=== PATIENT | male | born 1940 | race Caucasian/White ===

== ENCOUNTER 2017-04-23 14:15 | Outpatient (RCR) | payer SELFPAY | END 2017-04-23 23:59 | LOC: PR 14:15 | PROVIDERS: Family Provider Family Medicine; PCP Family Medicine; Visit Provider Internal Medicine Pulmonary Disease | DX: Z00.00 Encounter for general adult medical examination without abnormal findings (principal) ==

== ENCOUNTER 2017-05-23 14:15 | Outpatient (RCR) | payer SELFPAY | END 2017-05-24 23:59 | LOC: PR 14:15 | PROVIDERS: Family Provider Family Medicine; PCP Family Medicine; Visit Provider Internal Medicine Pulmonary Disease | DX: Z00.00 Encounter for general adult medical examination without abnormal findings (principal) ==

== ENCOUNTER 2017-06-23 14:15 | Outpatient (RCR) | payer SELFPAY | END 2017-06-23 23:59 | LOC: PR 14:15 | PROVIDERS: Family Provider Family Medicine; PCP Family Medicine; Visit Provider Internal Medicine Pulmonary Disease | DX: Z00.00 Encounter for general adult medical examination without abnormal findings (principal) ==

== ENCOUNTER 2017-07-24 06:00 | Outpatient (RCR) | payer SELFPAY | END 2017-07-24 23:59 | LOC: PR 06:00 | PROVIDERS: Family Provider Family Medicine; PCP Family Medicine; Visit Provider Internal Medicine Pulmonary Disease | DX: Z00.00 Encounter for general adult medical examination without abnormal findings (principal) ==

== ENCOUNTER 2017-07-25 08:49 | Outpatient (RCR) | payer SELFPAY | END 2017-08-23 23:59 | LOC: PR 08:49 | PROVIDERS: Family Provider Family Medicine; PCP Family Medicine; Visit Provider Internal Medicine Pulmonary Disease | DX: Z00.00 Encounter for general adult medical examination without abnormal findings (principal) ==

== ENCOUNTER 2017-09-23 06:00 | Outpatient (RCR) | payer SELFPAY | END 2017-09-23 23:59 | LOC: PR 06:00 | PROVIDERS: Family Provider Family Medicine; PCP Family Medicine; Visit Provider Internal Medicine Pulmonary Disease | DX: Z00.00 Encounter for general adult medical examination without abnormal findings (principal) ==

== ENCOUNTER → 2017-09-24 11:09 | Outpatient (CLI) | payer MEDICARE, SELFPAY ==
[2017-09-24 12:50] LABS: AST(SGOT) 26 U/L (15-37); Alanine Aminotransfer ALT/SGPT 35 U/L (16-61); Albumin, Serum 3.9 g/dL (3.2-5.0); Alkaline Phosphatase 158 U/L (45-117); Bilirubin, Direct 0.22 mg/dL (0.00-0.30); Cholesterol 139 mg/dL (200); Globulin 3.6 g/dL (2.2-4.2); High Density Lipoprotein 48 mg/dL; Protein, Total 7.5 g/dL (6.4-8.2); Triglycerides 85 mg/dL; Very Low Density Lipoprotein 17 mg/dL (5-40)
== END ==
PROVIDERS: Family Provider Family Medicine; PCP Family Medicine; Visit Provider Physician Assistant Medical
DX: E78.5 Hyperlipidemia, unspecified (principal)
CPT/HCPCS: 36415; 80061; 80076

== ENCOUNTER 2017-10-24 14:15 | Outpatient (RCR) | payer SELFPAY | END 2017-10-24 23:59 | LOC: PR 14:15 | PROVIDERS: Family Provider Family Medicine; PCP Family Medicine; Visit Provider Internal Medicine Pulmonary Disease | DX: Z00.00 Encounter for general adult medical examination without abnormal findings (principal) ==

== ENCOUNTER 2017-12-23 06:00 | Outpatient (RCR) | payer SELFPAY | END 2017-12-24 23:59 | LOC: PR 06:00 | PROVIDERS: Family Provider Family Medicine; PCP Family Medicine; Visit Provider Internal Medicine Pulmonary Disease | DX: Z00.00 Encounter for general adult medical examination without abnormal findings (principal) ==

== ENCOUNTER 2018-01-13 06:00 | Outpatient (RCR) | payer SELFPAY | END 2018-01-23 23:59 | LOC: PR 06:00 | PROVIDERS: Family Provider Family Medicine; PCP Family Medicine; Referring Provider Internal Medicine Pulmonary Disease; Visit Provider Internal Medicine Pulmonary Disease | DX: Z00.00 Encounter for general adult medical examination without abnormal findings (principal) ==

== ENCOUNTER 2018-02-19 06:00 | Outpatient (RCR) | payer SELFPAY ==
[2017-11-17 11:36] VITALS: BMI 27.7
== END 2018-02-23 23:59 ==
LOC: PR 06:00
PROVIDERS: Family Provider Family Medicine; PCP Family Medicine; Referring Provider Internal Medicine Pulmonary Disease; Visit Provider Internal Medicine Pulmonary Disease
DX: Z00.00 Encounter for general adult medical examination without abnormal findings (principal)

== ENCOUNTER → 2018-03-25 10:18 | Outpatient (CLI) | payer MEDICARE, SELFPAY ==
[2018-03-25 09:28] VITALS: BMI 27.7
[2018-03-25 10:56] LABS: Anion Gap 5 (5-15); BUN 11 mg/dL (7-18); BUN/Creat Ratio 12.9 RATIO (10-20); Chloride 108 mmol/L (98-107); Creatinine, Serum 0.85 mg/dL (0.70-1.30); EST Glomerular Filtration Rate 93 mL/min (>60); Est Glom Filt Rate - Afr Amer 113 mL/min (>60); Glucose 87 mg/dL (74-106); Potassium 4.2 mmol/L (3.5-5.1); Sodium Level 140 mmol/L (136-145)
[2018-03-25 11:17] LABS: AST(SGOT) 21 U/L (15-37); Alanine Aminotransfer ALT/SGPT 43 U/L (16-61); Albumin, Serum 3.9 g/dL (3.2-5.0); Alkaline Phosphatase 153 U/L (45-117); Bilirubin, Direct 0.23 mg/dL (0.00-0.30); Cholesterol 132 mg/dL (200); Globulin 3.5 g/dL (2.2-4.2); High Density Lipoprotein 48 mg/dL; Protein, Total 7.4 g/dL (6.4-8.2); Triglycerides 83 mg/dL; Very Low Density Lipoprotein 17 mg/dL (5-40)
== END ==
PROVIDERS: Physician Assistant Medical; Family Provider Family Medicine; PCP Family Medicine; Referring Provider Family Medicine; Visit Provider Family Medicine
DX: I10 Essential (primary) hypertension (principal); E78.5 Hyperlipidemia, unspecified; R35.0 Frequency of micturition; Z12.5 Encounter for screening for malignant neoplasm of prostate
CPT/HCPCS: 36415; 80048; 80061; 80076; 84153; G0103

== ENCOUNTER 2018-03-26 06:00 | Outpatient (RCR) | payer SELFPAY ==
[2017-11-17 11:36] VITALS: BMI 27.7
== END 2018-03-26 23:59 ==
LOC: PR 06:00
PROVIDERS: Family Provider Family Medicine; PCP Family Medicine; Referring Provider Internal Medicine Pulmonary Disease; Visit Provider Internal Medicine Pulmonary Disease
DX: Z00.00 Encounter for general adult medical examination without abnormal findings (principal)

== ENCOUNTER → 2018-03-26 11:14 | Outpatient (CLI) | payer MEDICARE, SELFPAY ==
[2018-03-25 09:28] VITALS: BMI 27.7
== END ==
PROVIDERS: Family Provider Family Medicine; PCP Family Medicine; Referring Provider Family Medicine; Visit Provider Family Medicine
DX: Z12.11 Encounter for screening for malignant neoplasm of colon (principal); Z79.01 Long term (current) use of anticoagulants
CPT/HCPCS: 82274

== ENCOUNTER → 2018-04-07 16:12 | Outpatient (CLI) | payer MEDICARE, SELFPAY ==
[2018-03-25 09:28] VITALS: BMI 27.7
[2018-04-07 12:07] VITALS: BMI 27.6
--- NOTE | 2018-04-07 12:42 | CT_ITS ---
STUDY: LOW DOSE CT LUNG CANCER SCREENING REASON FOR EXAM: Male, 77 years old. 40 year history of pipe smoking. RADIATION DOSAGE (If Supplied By Facility): CTDIvol = ( 2.55 ) mGy, DLP = ( 90.92 ) mGycm TECHNIQUE: No contrast was administered. Low dose technique was utilized (average mAS-38 and kVp 120). 1.25 mm axial source images with a slice interval of 1.25-mm were reconstructed in lung windows. 2.5 mm axial source images with a slice interval of 2.5-mm were reconstructed in lung windows. 5.0 mm axial source images with a slice interval of 5.0-mm were reconstructed in soft tissue windows. Nodule measured using lung windows on PACS and/or independent workstation with automated measurement of minimum and maximum diameter. Nodule measurement reported as average diameter rounded to the nearest whole number. Growth is defined as an increase ins size of greater than 1.5 mm. COMPARISON: None. NODULES: There is a 6.8 mm calcified granuloma in the superior lateral aspect of the left lower lobe as seen on axial image #89. Total lung nodules (excluding granulomas): Emphysema: Hyperinflation. Mild degree of emphysematous changes. Findings suggest a mild degree of right apical scarring. Increased linear density with areas of confluence in the posterior aspect of the lingular segment of the left upper lobe. This abuts the left major fissure and most likely represents scarring. Aorta: Atherosclerotic calcification of the aortic arch and descending thoracic aorta. Coronary arteries: Coronary artery calcification. Mediastinal nodes: Small benign-appearing mediastinal lymph nodes. Other chest and abdominal findings: CT/Low Dose CT Lung Screening IMPRESSION: Lung-RADS category 2 - Continue annual screening with LDCT in 12 months. IMPORTANT NOTES FOR USE: ACR Lung-RADS Version 1.0 Assessment Categories Release Date: June 21, 2013 Category: Coded 0-4 bases on nodule(s) with highest degree of suspicion. Negative screen is defined as categories 1 and 2; a positive screen is defined as categories 3 and 4. Category 3 and 4A nodules that are unchanged on interval CT should be coded as category 2, and individuals returned to screening in 12 months. Category 4X: Category 3 or 4 nodules with additional imaging findings that increase the suspicion of lung cancer, such as spiculation, GGN that doubles in size in 1 year, enlarged lymph notes, etc. Category Modifiers: S (significant finding unrelated to lung cancer) and C (prior history of treated lung cancer) may be added to the 0-4 Lung-RADS Electronically Signed: Milo Valero MD at 13:17 EST , Service support ,
== END ==
PROVIDERS: Family Provider Family Medicine; PCP Family Medicine; Referring Provider Nurse Practitioner Family; Visit Provider Nurse Practitioner Family
DX: Z87.891 Personal history of nicotine dependence (principal); Z12.2 Encounter for screening for malignant neoplasm of respiratory organs
CPT/HCPCS: G0297

== ENCOUNTER 2018-04-23 06:00 | Outpatient (RCR) | payer SELFPAY ==
[2018-03-25 09:28] VITALS: BMI 27.7
== END 2018-04-23 23:59 ==
LOC: PR 06:00
PROVIDERS: Family Provider Family Medicine; PCP Family Medicine; Referring Provider Internal Medicine Pulmonary Disease; Visit Provider Internal Medicine Pulmonary Disease
DX: Z00.00 Encounter for general adult medical examination without abnormal findings (principal)

== ENCOUNTER 2018-05-22 14:15 | Outpatient (RCR) | payer SELFPAY ==
[2018-04-24 00:26] VITALS: BMI 27.7
== END 2018-05-24 23:59 ==
LOC: PR 14:15
PROVIDERS: Family Provider Family Medicine; PCP Family Medicine; Referring Provider Internal Medicine Pulmonary Disease; Visit Provider Internal Medicine Pulmonary Disease
DX: Z00.00 Encounter for general adult medical examination without abnormal findings (principal)

== ENCOUNTER 2018-06-23 06:00 | Outpatient (RCR) | payer SELFPAY ==
[2018-04-24 00:26] VITALS: BMI 27.7
== END 2018-06-23 23:59 ==
LOC: PR 06:00
PROVIDERS: Family Provider Family Medicine; PCP Family Medicine; Referring Provider Internal Medicine Pulmonary Disease; Visit Provider Internal Medicine Pulmonary Disease
DX: Z00.00 Encounter for general adult medical examination without abnormal findings (principal)

== ENCOUNTER 2018-07-23 06:00 | Outpatient (RCR) | payer SELFPAY ==
[2018-04-24 00:26] VITALS: BMI 27.7
== END 2018-07-24 23:59 ==
LOC: PR 06:00
PROVIDERS: Family Provider Family Medicine; PCP Family Medicine; Referring Provider Internal Medicine Pulmonary Disease; Visit Provider Internal Medicine Pulmonary Disease
DX: Z00.00 Encounter for general adult medical examination without abnormal findings (principal)

== ENCOUNTER 2018-09-22 06:00 | Outpatient (RCR) | payer SELFPAY ==
[2018-04-24 00:26] VITALS: BMI 27.7
== END 2018-09-23 23:59 ==
LOC: PR 06:00
PROVIDERS: Family Provider Family Medicine; PCP Family Medicine; Referring Provider Internal Medicine Pulmonary Disease; Visit Provider Internal Medicine Pulmonary Disease
DX: Z00.00 Encounter for general adult medical examination without abnormal findings (principal)

== ENCOUNTER 2018-10-16 14:15 | Outpatient (RCR) | payer SELFPAY ==
[2018-04-24 00:26] VITALS: BMI 27.7
== END 2018-10-24 23:59 ==
LOC: PR 14:15
PROVIDERS: Family Provider Family Medicine; PCP Family Medicine; Referring Provider Internal Medicine Pulmonary Disease; Visit Provider Internal Medicine Pulmonary Disease
DX: Z00.00 Encounter for general adult medical examination without abnormal findings (principal)

== ENCOUNTER 2018-11-23 14:15 | Outpatient (RCR) | payer SELFPAY ==
[2018-04-24 00:26] VITALS: BMI 27.7
== END 2018-11-23 23:59 ==
LOC: PR 14:15
PROVIDERS: Family Provider Family Medicine; PCP Family Medicine; Referring Provider Internal Medicine Pulmonary Disease; Visit Provider Internal Medicine Pulmonary Disease
DX: Z00.00 Encounter for general adult medical examination without abnormal findings (principal)

== ENCOUNTER → 2018-11-27 | Outpatient (CLI) | payer MEDICARE, SELFPAY ==
[2018-11-24 15:36] VITALS: BMI 27.4
[2018-11-27 12:15] LABS: AST(SGOT) 26 U/L (15-37); Alanine Aminotransfer ALT/SGPT 35 U/L (16-61); Albumin, Serum 3.6 g/dL (3.2-5.0); Alkaline Phosphatase 160 U/L (45-117); Bilirubin, Direct 0.22 mg/dL (0.00-0.30); Cholesterol 150 mg/dL (200); Globulin 3.4 g/dL (2.2-4.2); High Density Lipoprotein 48 mg/dL; Triglycerides 102 mg/dL; Very Low Density Lipoprotein 20 mg/dL (5-40)
== END | disposition home or self-care (01) ==
PROVIDERS: Internal Medicine Cardiovascular Disease; Family Provider Family Medicine; PCP Family Medicine; Referring Provider Internal Medicine Cardiovascular Disease; Visit Provider Internal Medicine Cardiovascular Disease
DX: E78.00 Pure hypercholesterolemia, unspecified (principal)
CPT/HCPCS: 36415; 80061; 80076

== ENCOUNTER 2018-12-24 06:00 | Outpatient (RCR) | payer SELFPAY ==
[2018-04-24 00:26] VITALS: BMI 27.7
== END 2018-12-24 23:59 ==
LOC: PR 06:00
PROVIDERS: Family Provider Family Medicine; PCP Family Medicine; Referring Provider Internal Medicine Pulmonary Disease; Visit Provider Internal Medicine Pulmonary Disease
DX: Z00.00 Encounter for general adult medical examination without abnormal findings (principal)

== ENCOUNTER 2019-01-19 06:00 | Outpatient (RCR) | payer SELFPAY ==
[2018-12-10 14:09] VITALS: BMI 27.7
== END 2019-01-23 23:59 ==
LOC: PR 06:00
PROVIDERS: Family Provider Family Medicine; PCP Family Medicine; Referring Provider Internal Medicine Pulmonary Disease; Visit Provider Internal Medicine Pulmonary Disease
DX: Z00.00 Encounter for general adult medical examination without abnormal findings (principal)

== ENCOUNTER 2019-02-23 06:00 | Outpatient (RCR) | payer SELFPAY ==
[2018-12-10 14:09] VITALS: BMI 27.7
== END 2019-02-23 23:59 ==
LOC: PR 06:00
PROVIDERS: Family Provider Family Medicine; PCP Family Medicine; Referring Provider Internal Medicine Pulmonary Disease; Visit Provider Internal Medicine Pulmonary Disease
DX: Z00.00 Encounter for general adult medical examination without abnormal findings (principal)

== ENCOUNTER → 2019-03-04 10:32 | Outpatient (CLI) | payer MEDICARE, SELFPAY ==
[2019-02-25 10:33] VITALS: BMI 27.9
--- NOTE | 2019-03-04 10:35 | RAD_ITS ---
STUDY: X-RAY CHEST REASON FOR EXAM: Male, 78 years old. COUGH, COPD TECHNIQUE: Frontal and lateral views of the chest. COMPARISON: 12/29/2012. FINDINGS: There is hyperinflation of the lungs consistent with chronic obstructive lung disease (COPD). No infiltrates. Small calcified granuloma of the mid right lung, stable. No effusions. There is no demonstrated pleural abnormality. Normal size heart. Normal mediastinum and sarah beth. Normal visualized pulmonary arteries. Normal visualized aortic arch and descending thoracic aorta. There are diffuse degenerative changes of the visualized thoracic spine. Normal visualized ribs, clavicles, and shoulders. There is no demonstrated abnormality of the visualized soft tissue structures of the upper abdomen. RAD/Chest PA and Lateral IMPRESSION: There are findings consistent with COPD. There is no evidence of acute chest disease. Electronically Signed: Carlos Riggs MD at 18:07 EST , Service support ,
== END ==
PROVIDERS: Family Provider Family Medicine; PCP Family Medicine; Referring Provider Nurse Practitioner Family; Visit Provider Nurse Practitioner Family
DX: R05 Cough (principal)
CPT/HCPCS: 71046

== ENCOUNTER 2019-03-26 14:15 | Outpatient (RCR) | payer SELFPAY ==
[2018-12-10 14:09] VITALS: BMI 27.7
== END 2019-03-26 23:59 ==
LOC: PR 14:15
PROVIDERS: Family Provider Family Medicine; PCP Family Medicine; Referring Provider Internal Medicine Pulmonary Disease; Visit Provider Internal Medicine Pulmonary Disease
DX: Z00.00 Encounter for general adult medical examination without abnormal findings (principal)

== ENCOUNTER 2019-04-23 14:15 | Outpatient (RCR) | payer SELFPAY ==
[2019-02-25 10:33] VITALS: BMI 27.9
== END 2019-04-24 23:59 ==
LOC: PR 14:15
PROVIDERS: Family Provider Family Medicine; PCP Family Medicine; Referring Provider Internal Medicine Pulmonary Disease; Visit Provider Internal Medicine Pulmonary Disease
DX: Z00.00 Encounter for general adult medical examination without abnormal findings (principal)

== ENCOUNTER → 2019-05-04 13:58 | Outpatient (CLI) | payer MEDICARE, SELFPAY ==
[2019-02-25 10:33] VITALS: BMI 27.9
[2019-05-04 13:32] VITALS: BMI 29.2
--- NOTE | 2019-05-04 14:00 | CT_ITS ---
STUDY: LOW DOSE CT LUNG CANCER SCREENING REASON FOR EXAM: Male, 78 years old. LUNG SCREEN, 45 PACK YEAR HISTORY, YEARLY FOLLOW UP RADIATION DOSAGE (If Supplied By Facility): CTDIvol = ( 2.55 ) mGy, DLP = ( 82.64 ) mGycm TECHNIQUE: No contrast was administered. Low dose technique was utilized (average mAS-38 and kVp 120). 1.25 mm axial source images with a slice interval of 1.25-mm were reconstructed in lung windows. 2.5 mm axial source images with a slice interval of 2.5-mm were reconstructed in lung windows. 5.0 mm axial source images with a slice interval of 5.0-mm were reconstructed in soft tissue windows. Nodule measured using lung windows on PACS and/or independent workstation with automated measurement of minimum and maximum diameter. Nodule measurement reported as average diameter rounded to the nearest whole number. Growth is defined as an increase ins size of greater than 1.5 mm. COMPARISON: Comparison is made with prior examination January 05, 2019. NODULES: Stable 6.8 mm calcified granuloma in the superior lateral aspect of the left lower lobe. Emphysema: There is evidence of emphysematous changes more prominent in the upper lobes. Calcified left hilar lymph nodes. Thickening of the left major fissure. Aorta: Calcific plaques. Coronary arteries: Coronary artery calcifications. Mediastinal nodes: Small benign-appearing mediastinal lymph nodes. Other chest and abdominal findings: Degenerative changes of the thoracic spine. CT/Low Dose CT Lung Screening IMPRESSION: Lung-RADS category 2 - Continue annual screening with LDCT in 12 months. IMPORTANT NOTES FOR USE: ACR Lung-RADS Version 1.0 Assessment Categories Release Date: June 21, 2013 Category: Coded 0-4 bases on nodule(s) with highest degree of suspicion. Negative screen is defined as categories 1 and 2; a positive screen is defined as categories 3 and 4. Category 3 and 4A nodules that are unchanged on interval CT should be coded as category 2, and individuals returned to screening in 12 months. Category 4X: Category 3 or 4 nodules with additional imaging findings that increase the suspicion of lung cancer, such as spiculation, GGN that doubles in size in 1 year, enlarged lymph notes, etc. Category Modifiers: S (significant finding unrelated to lung cancer) and C (prior history of treated lung cancer) may be added to the 0-4 Lung-RADS Electronically Signed: Milo Valero, at 15:25 EDT , Service support ,
== END ==
PROVIDERS: PCP Family Medicine; Referring Provider Nurse Practitioner Family; Visit Provider Nurse Practitioner Family
DX: Z12.2 Encounter for screening for malignant neoplasm of respiratory organs (principal); Z87.891 Personal history of nicotine dependence
CPT/HCPCS: G0297

== ENCOUNTER 2019-05-07 14:15 | Outpatient (RCR) | payer SELFPAY ==
[2019-02-25 10:33] VITALS: BMI 27.9
== END 2019-05-25 23:59 ==
LOC: PR 14:15
PROVIDERS: Family Provider Family Medicine; PCP Family Medicine; Referring Provider Internal Medicine Pulmonary Disease; Visit Provider Internal Medicine Pulmonary Disease
DX: Z00.00 Encounter for general adult medical examination without abnormal findings (principal)

== ENCOUNTER 2019-06-28 13:38 | Outpatient (RCR) | payer MEDICARE, SELFPAY ==
[2019-05-04 13:32] VITALS: BMI 29.2
== END 2019-07-25 23:59 ==
LOC: PR 13:38
PROVIDERS: Family Provider Family Medicine; PCP Family Medicine; Referring Provider Internal Medicine Pulmonary Disease; Visit Provider Internal Medicine Pulmonary Disease
DX: Z00.00 Encounter for general adult medical examination without abnormal findings (principal)

== ENCOUNTER → 2019-12-02 11:05 | Outpatient (CLI) | payer MEDICARE, SELFPAY ==
[2019-11-29 11:04] VITALS: BMI 28.7
[2019-12-02 12:31] LABS: AST(SGOT) 25 U/L (15-37); Alanine Aminotransfer ALT/SGPT 40 U/L (16-61); Albumin, Serum 3.8 g/dL (3.2-5.0); Alkaline Phosphatase 149 U/L (45-117); Bilirubin, Direct 0.28 mg/dL (0.00-0.30); Cholesterol 137 mg/dL (200); Globulin 3.5 g/dL (2.2-4.2); High Density Lipoprotein 52 mg/dL; Protein, Total 7.3 g/dL (6.4-8.2); Triglycerides 77 mg/dL; Very Low Density Lipoprotein 15 mg/dL (5-40)
== END ==
PROVIDERS: PCP Family Medicine; Referring Provider Internal Medicine Cardiovascular Disease; Visit Provider Internal Medicine Cardiovascular Disease
DX: E78.00 Pure hypercholesterolemia, unspecified (principal)
CPT/HCPCS: 36415; 80061; 80076

== ENCOUNTER → 2020-07-26 14:22 | Outpatient (CLI) | payer MEDICARE, SELFPAY ==
[2019-11-29 11:04] VITALS: BMI 28.7
--- NOTE | 2020-07-26 14:35 | RAD_ITS ---
STUDY: X-RAY CHEST REASON FOR EXAM: Male, 80 years old. COPD TECHNIQUE: PA and lateral views of the chest. COMPARISON: 03/04/2019 FINDINGS: There is hyperinflation of the lungs consistent with chronic obstructive lung disease (COPD). There is no demonstrated pleural abnormality. Normal size heart. Normal mediastinum and sarah beth. Normal visualized pulmonary arteries. Normal visualized aortic arch and descending thoracic aorta. Normal visualized thoracic spine. Normal visualized ribs, clavicles, and shoulders. There is no demonstrated abnormality of the visualized soft tissue structures of the upper abdomen. RAD/Chest PA and Lateral IMPRESSION: Emphysema without pneumonia or atelectasis. Electronically Signed: Eduardo Patterson MD at 14:48 EDT Tel , Service support ,
== END ==
PROVIDERS: PCP Family Medicine; Referring Provider Internal Medicine Pulmonary Disease; Visit Provider Internal Medicine Pulmonary Disease
DX: J44.9 Chronic obstructive pulmonary disease, unspecified (principal)
CPT/HCPCS: 71046

== ENCOUNTER 2020-08-22 08:00 | Outpatient (RCR) | payer SELFPAY ==
[2019-11-29 11:04] VITALS: BMI 28.7
== END 2020-08-23 23:59 ==
LOC: PR 08:00
PROVIDERS: PCP Family Medicine; Referring Provider Internal Medicine Pulmonary Disease; Visit Provider Internal Medicine Pulmonary Disease
DX: Z00.00 Encounter for general adult medical examination without abnormal findings (principal)

== ENCOUNTER 2020-09-21 08:00 | Outpatient (RCR) | payer SELFPAY ==
[2019-11-29 11:04] VITALS: BMI 28.7
== END 2020-09-23 23:59 ==
LOC: PR 08:00
PROVIDERS: PCP Family Medicine; Referring Provider Internal Medicine Pulmonary Disease; Visit Provider Internal Medicine Pulmonary Disease
DX: Z00.00 Encounter for general adult medical examination without abnormal findings (principal)

== ENCOUNTER 2020-10-24 08:00 | Outpatient (RCR) | payer SELFPAY ==
[2019-11-29 11:04] VITALS: BMI 28.7
== END 2020-10-24 23:59 ==
LOC: PR 08:00
PROVIDERS: PCP Family Medicine; Referring Provider Internal Medicine Pulmonary Disease; Visit Provider Internal Medicine Pulmonary Disease
DX: Z00.00 Encounter for general adult medical examination without abnormal findings (principal)

== ENCOUNTER 2020-11-23 08:00 | Outpatient (RCR) | payer SELFPAY ==
[2020-10-25 00:35] VITALS: BMI 28.7
== END 2020-11-23 23:59 ==
LOC: PR 08:00
PROVIDERS: PCP Family Medicine; Referring Provider Internal Medicine Pulmonary Disease; Visit Provider Internal Medicine Pulmonary Disease
DX: Z00.00 Encounter for general adult medical examination without abnormal findings (principal)

== ENCOUNTER → 2020-12-21 09:54 | Outpatient (CLI) | payer MEDICARE, SELFPAY ==
[2020-12-21 11:11] LABS: AST(SGOT) 23 U/L (15-37); Alanine Aminotransfer ALT/SGPT 40 U/L (16-61); Albumin, Serum 3.6 g/dL (3.2-5.0); Alkaline Phosphatase 131 U/L (45-117); Bilirubin, Direct 0.26 mg/dL (0.00-0.30); Cholesterol 128 mg/dL (200); Globulin 3.7 g/dL (2.2-4.2); High Density Lipoprotein 48 mg/dL; Protein, Total 7.3 g/dL (6.4-8.2); Triglycerides 99 mg/dL; Very Low Density Lipoprotein 20 mg/dL (5-40)
== END ==
PROVIDERS: PCP Family Medicine; Referring Provider Internal Medicine Cardiovascular Disease; Visit Provider Internal Medicine Cardiovascular Disease
DX: E78.00 Pure hypercholesterolemia, unspecified (principal)
CPT/HCPCS: 36415; 80061; 80076

== ENCOUNTER 2021-01-23 08:00 | Outpatient (RCR) | payer SELFPAY ==
[2020-11-24 00:27] VITALS: BMI 28.7
== END 2021-01-23 23:59 ==
LOC: PR 08:00
PROVIDERS: PCP Family Medicine; Referring Provider Internal Medicine Pulmonary Disease; Visit Provider Internal Medicine Pulmonary Disease
DX: Z00.00 Encounter for general adult medical examination without abnormal findings (principal)

== ENCOUNTER 2021-02-13 08:00 | Outpatient (RCR) | payer SELFPAY ==
[2021-01-24 00:08] VITALS: BMI 28.7
== END 2021-02-23 23:59 ==
LOC: PR 08:00
PROVIDERS: PCP Family Medicine; Referring Provider Internal Medicine Pulmonary Disease; Visit Provider Internal Medicine Pulmonary Disease
DX: Z00.00 Encounter for general adult medical examination without abnormal findings (principal)

== ENCOUNTER 2021-02-27 06:36 | Outpatient (RCR) | payer SELFPAY | END 2021-03-26 23:59 | LOC: PR 06:36 | PROVIDERS: PCP Family Medicine; Referring Provider Internal Medicine Pulmonary Disease; Visit Provider Internal Medicine Pulmonary Disease | DX: Z00.00 Encounter for general adult medical examination without abnormal findings (principal) ==

== ENCOUNTER → 2021-06-15 | Outpatient (CLI) | payer MEDICARE, SELFPAY ==
[2021-06-15 11:31] LABS: AST(SGOT) 34 U/L (15-37); Alanine Aminotransfer ALT/SGPT 54 U/L (16-61); Albumin, Serum 3.8 g/dL (3.2-5.0); Alkaline Phosphatase 145 U/L (45-117); Bilirubin, Direct 0.21 mg/dL (0.00-0.30); Cholesterol 120 mg/dL (200); Globulin 3.6 g/dL (2.2-4.2); High Density Lipoprotein 44 mg/dL; Protein, Total 7.4 g/dL (6.4-8.2); Triglycerides 76 mg/dL; Very Low Density Lipoprotein 15 mg/dL (5-40)
== END | disposition home or self-care (01) ==
PROVIDERS: PCP Family Medicine; Referring Provider Internal Medicine Cardiovascular Disease; Visit Provider Internal Medicine Cardiovascular Disease
DX: E78.00 Pure hypercholesterolemia, unspecified (principal)
CPT/HCPCS: 36415; 80061; 80076

== ENCOUNTER 2021-07-26 06:25 | Outpatient (RCR) | payer SELFPAY | END 2021-08-23 23:59 | LOC: PR 06:25 | PROVIDERS: PCP Family Medicine; Referring Provider Internal Medicine Pulmonary Disease; Visit Provider Internal Medicine Pulmonary Disease | DX: Z00.00 Encounter for general adult medical examination without abnormal findings (principal) ==

== ENCOUNTER → 2022-02-28 | Outpatient (CLI) | payer MEDICARE, SELFPAY ==
--- NOTE | 2022-02-28 06:41 | ECHOD_ITS ---
Reason For Study: CAD/ASHD Procedure This was a 2D Doppler, Color Flow transthoracic echocardiogram. The exam was of adequate technical quality. Exam performed in department. Left Ventricle Normal LV size. Apical false tendon noted. Left ventricular systolic function is normal. The estimated ejection fraction is 55 %. Diastolic function is indeterminate. No regional wall motion abnormalities noted. Right Ventricle Normal RV size. Normal systolic function. Atria Normal left atrium. Normal right atrium. No doppler evidence for ASD. Mitral Valve There is no mitral annular calcification. Normal mitral valve. The mitral papillary muscle appears thickened and/or calcified. Mild (1+) mitral valve insufficiency. Tricuspid Valve Normal tricuspid valve. Mild tricuspid valve insufficiency. Unable to estimate RV systolic pressure due to insufficient tricuspid regurgitant envelope. Aortic Valve Trisinus/trileaflet aortic valve. Mild focal aortic valve calcification. Pulmonic Valve The pulmonic valve is not well visualized. Mild (1+) pulmonic valve insufficiency. Great Vessels Normal sized aortic root. Pericardium/Pleural No pericardial effusion. MMode/2D Measurements & Calculations LVIDd: 5.3 cm IVSd: 1.0 cm Ao root diam: 3.4 cm LVIDs: 3.3 cm LVPWd: 1.0 cm RVDd: 3.2 cm FS: 36.7 % LAV(MOD-bp): 57.0 ml LVAd ap4: 27.5 cm2 LVAd ap2: 29.4 cm2 LAV(MOD-bp) Indexed: 29.6 ml/m2 LVLd ap4: 7.4 cm LVLd ap2: 8.3 cm LAV(MOD-sp2): 53.2 ml EDV(MOD-sp4): 84.9 ml EDV(MOD-sp2): 88.4 ml LAV(MOD-sp4): 53.1 ml EDV(sp4-el): 87.3 ml EDV(sp2-el): 88.2 ml LVAs ap4: 17.2 cm2 LVAs ap2: 17.0 cm2 LVLs ap4: 6.5 cm LVLs ap2: 6.3 cm ESV(MOD-sp4): 40.1 ml ESV(MOD-sp2): 38.9 ml ESV(sp4-el): 38.6 ml ESV(sp2-el): 39.1 ml EF(MOD-sp4): 52.8 % EF(MOD-sp2): 56.0 % EF(sp4-el): 55.7 % SV(MOD-sp4): 44.8 ml SV(MOD-sp2): 49.5 ml SV(sp4-el): 48.7 ml LA dimension(2D): 3.9 cm LA A4 area: 17.4 cm2 RA A4 area: 18.4 cm2 Time Measurements MV dec time: 0.23 sec Doppler Measurements & Calculations MV E max sergio: 58.6 cm/sec Lat Peak E' Sergio: 9.4 cm/sec Med Peak E' Sergio: 7.0 cm/sec MV A max sergio: 91.9 cm/sec E/E' lat: 6.2 E/E' med: 8.4 MV E/A: 0.64 MV dec slope: 255.7 cm/sec2 Ao V2 max: 101.3 cm/sec LV V1 max: 78.9 cm/sec Ao max P.1 mmHg LV V1 max P.5 mmHg Ao V2 mean: 72.6 cm/sec LV V1 mean P.3 mmHg Ao mean P.4 mmHg LV V1 mean: 52.7 cm/sec Ao V2 VTI: 22.4 cm LV V1 VTI: 17.1 cm AV (velocity ratio): 0.76 PA V2 max: 83.0 cm/sec PI end-d sergio: 127.7 cm/sec ECHO/Echo Complete Interpretation Summary Left ventricular systolic function is normal. The estimated ejection fraction is 55 %. Apical false tendon noted. The mitral papillary muscle appears thickened and/or calcified. Mild (1+) mitral valve insufficiency. Mild tricuspid valve insufficiency. Mild focal aortic valve calcification. Mild (1+) pulmonic valve insufficiency. Unable to estimate RV systolic pressure due to insufficient tricuspid regurgita nt envelope. Diastolic function is indeterminate. Ordering Physician: Dedrick Ureña Referring Physician: Freddy Carson Performed By: Day Lara, SHERINE, RVT
--- NOTE | 2022-02-28 12:55 | STRESSREP ---
Stress Test Report Date: 02-28-2022 Procedure: Pharmacologic stress nuclear imaging study Indications: Shortness of breath/dyspnea on exertion; CAD; PCI Consent: Per the patient Procedure: The patient underwent pharmacologic (Regadenoson 0.4mg ) evaluation with a peak heart rate of 97 beats per minute (68%predicted maximal heart rate) and a resting blood pressure of 142/64 mmHg and a peak blood pressure of 142/64 mmHg. The baseline ECG demonstrated sinus rhythm. The peak pharmacologic ECG demonstrated no obvious ECG changes. There were rare PACs/PVCs pretest and during recovery. There was no complaint of chest discomfort during pharmacologic infusion or recovery. The examination was discontinued secondary to completion of protocol. Impression: 1. Pharmacologic (Regadenoson) evaluation 2. Peak pharmacologic ECG with no obvious ECG changes. 3. There were rare PACs/PVCs pretest and during recovery. 4. Nuclear images pending Myocardial perfusion imaging study: Technique: The patient was injected with 11.7 millicuries of technetium 99m Cardiolite and subsequently rest SPECT Cardiolite nuclear imaging was obtained in the horizontal long, vertical long, and short axis views. The patient underwent pharmacologic (Regadenoson) evaluation with a peak heart rate of 97 beats per minute (68% percent predicted maximal heart rate) and a resting blood pressure of 142/64 mmHg and a peak blood pressure of 142/64 mmHg. The patient was injected with 34.3 millicuries of technetium 99m Cardiolite and subsequently stress SPECT Cardiolite nuclear imaging was obtained in the horizontal long, vertical long, and short axis views. A gated Cardiolite study at peak stress was obtained. Interpretation: Rest and stress SPECT Cardiolite nuclear imaging status post realignment, normalization, and attenuation correction demonstrate an element of body motion during image acquisition and otherwise relative uniform tracer uptake/myocardial perfusion appearing within normal limits. There is end systolic thickening and brightening. The gated Cardiolite study demonstrates myocardial thickening and inward wall motion. The reported LVEF is 57%. Impression: 1. Rest and stress SPECT Cardiolite nuclear imaging demonstrate relative uniform tracer uptake and myocardial perfusion appearing within normal limits. 2. The gated Cardiolite study reports an LVEF of 57%. This note was generated with [employer] software. It may contain incorrect words, spelling, and punctuation that were not noted in checking the note before signing.
== END | disposition home or self-care (01) ==
LOC: CVS 06:40
PROVIDERS: PCP Family Medicine; Visit Provider Internal Medicine Cardiovascular Disease
DX: I25.10 Atherosclerotic heart disease of native coronary artery without angina pectoris (principal); R06.09 Other forms of dyspnea; I10 Essential (primary) hypertension; E78.00 Pure hypercholesterolemia, unspecified; Z95.5 Presence of coronary angioplasty implant and graft
CPT/HCPCS: 78452; 93017; 93306; A9500; A4216; J2785

== ENCOUNTER → 2022-07-18 | Outpatient (CLI) | payer MEDICARE, SELFPAY ==
[2022-07-18 15:53] LABS: ALB/GLOB Ratio 1.2 RATIO (0.9-2.4); AST(SGOT) 25 U/L (15-37); Alanine Aminotransfer ALT/SGPT 35 U/L (16-61); Albumin, Serum 3.9 g/dL (3.2-5.0); Alkaline Phosphatase 152 U/L (45-117); Anion Gap 8 (5-15); BUN 13 mg/dL (7-18); BUN/Creat Ratio 17.5 RATIO (10-20); Calcium,Total 9.2 mg/dL (8.5-10.1); Chloride 106 mmol/L (98-107); Cholesterol 134 mg/dL (200); Creatinine, Serum 0.74 mg/dL (0.70-1.30); EST Glomerular Filtration Rate 108 mL/min (>60); Est Glom Filt Rate - Afr Amer 130 mL/min (>60); Globulin 3.3 g/dL (2.2-4.2); Glucose 78 mg/dL (74-106); High Density Lipoprotein 49 mg/dL; Potassium 4.3 mmol/L (3.5-5.1); Protein, Total 7.2 g/dL (6.4-8.2); Sodium Level 141 mmol/L (136-145); Triglycerides 91 mg/dL; Very Low Density Lipoprotein 18 mg/dL (5-40)
== END | disposition home or self-care (01) ==
LOC: BIMLAB 12:09
PROVIDERS: PCP Family Medicine; Referring Provider Family Medicine; Visit Provider Family Medicine
DX: E78.00 Pure hypercholesterolemia, unspecified (principal); R35.0 Frequency of micturition
CPT/HCPCS: 36415; 80053; 80061; 84153

== ENCOUNTER 2022-10-01 09:51 | Outpatient (RCR) | payer MEDICARE, SELFPAY | END 2022-10-21 08:11 | disposition home or self-care (01) | LOC: WC 09:51 | PROVIDERS: PCP Family Medicine; Referring Provider Physician Assistant Surgical; Visit Provider Surgery | DX: Z00.00 Encounter for general adult medical examination without abnormal findings (principal) ==

== ENCOUNTER → 2023-03-24 | Outpatient (CLI) | payer MEDICARE, SELFPAY ==
--- NOTE | 2023-03-24 14:22 | RAD_ITS ---
STUDY: X-RAY CHEST REASON FOR EXAM: Male, 82 years old. Chest congestion w/ sob TECHNIQUE: PA and lateral views of the chest. COMPARISON: Comparison is made with prior study dated January 24, 2022. FINDINGS: There is hyperinflation of the lungs consistent with chronic obstructive lung disease (COPD). Calcified granuloma in the left upper lobe. There is no demonstrated pleural abnormality. Normal size heart. Normal mediastinum and sarah beth. There is prominence of the pulmonary hilar arteries without peripheral pulmonary vascular congestion, suggesting pulmonary hypertension. There is atherosclerotic calcification of the aortic arch with tortuosity. There is demineralization of the osseous structures. Normal visualized ribs, clavicles, and shoulders. There is no demonstrated abnormality of the visualized soft tissue structures of the upper abdomen. RAD/Chest PA and Lateral IMPRESSION: Hyperinflation and COPD. No acute abnormality is seen. Electronically Signed: Milo Valero MD at 15:18 EST ,
--- OUTSIDE RECORDS SUMMARY | 2023-03-24 14:39 | XMS RPT_ITS | CCD ---
Author Name Unknown Address [address] [place] [address] Organization [facility] Care Team Providers Care Velocity Shooter Name Role Phone Andre Ramos Unavailable Unavailable Niranjan MELENDREZ, Dedrick Murray Unavailable Prema Macedo Unavailable Andre Ramos Unavailable Unavailable Lina LEYVA, Jeimy Kulkarni Unavailable Unavailable Prema Macedo Unavailable Allergies Allergy Classification Reported Allergen(s) Allergy Type Date of Onset Reaction(s) Facility (6 sources) cefuroxime drug allergy 07-24-2011 [facility] Work Phone: (5 sources) NKA drug allergy 07-24-2011 [facility] Work Phone: Medications Completed/Discontinued Medications Medication Drug Class(es) Dates Sig (Normalized) Sig (Original) 200 actuat albuterol 0.09 mg/actuat metered dose inhaler (18 sources) beta2-Adrenergic Agonist Start: 08-01-2014 PROVENTIL HFA 108 (90 Base) MCG/ACT AERS as needed ALBUTEROL SULFATE [id number] Minerva Spence PA-C Problems Active Problems Problem Classification Problem Date Documented Date Episodic/Chronic 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; 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] Onset: 08-05-2013 08-05-2013 Chronic Chronic obstructive pulmonary disease and bronchiectasis (6 sources) Chronic obstructive lung disease; Translations: [Chronic obstructive pulmonary disease, unspecified] Onset: 06-21-2010 06-21-2010 Chronic Coronary atherosclerosis and other heart disease (12 sources) Atherosclerotic heart disease of [place] coronary artery without angina pectoris; Translations: [Atherosclerotic heart disease of [place] coronary artery without angina pectoris] Onset: 06-21-2010 06-21-2010 Chronic Disorders of lipid metabolism (6 sources) Hyperlipidemia; Translations: [Hyperlipidemia, unspecified] Onset: 06-21-2010 06-21-2010 Chronic Essential hypertension (6 sources) Hypertensive disorder; Translations: [Essential (primary) hypertension] Onset: 06-21-2010 06-21-2010 Chronic Unclassified (2 sources) Long-term drug therapy; Translations: [Other terminal carman (current) drug therapy] Onset: 06-21-2010 06-21-2010 Unclassified (1 source) Finding of body mass index; Translations: [Body mass index (BMI) 28.0-28.9, adult] Onset: 07-26-2013 07-26-2013 Past or Other Problems Problem Classification Problem Date Documented Da te Episodic/Chronic Coronary atherosclerosis and other heart disease (6 sources) Coronary angioplasty status; Translations: [Coronary angioplasty status] Onset: 06-21-2010 06-21-2010 Episodic Malaise and fatigue (6 sources) Fatigue; Translations: [Other fatigue] Onset: 07-24-2011 07-24-2011 Episodic Nonspecific chest pain (6 sources) Chest discomfort; Translations: [Other chest pain] Onset: 06-21-2010 06-21-2010 Episodic Other aftercare (4 sources) Other terminal carman (current) drug therapy; Translations: [Other fci (current) drug therapy] Onset: 06-21-2010 06-21-2010 Episodic Other circulatory disease (6 sources) Cardiovascular stress test abnormal; Translations: [Abnormal result of other cardiovascular function study] Onset: 11-13-2015 11-13-2015 Episodic Other lower respiratory disease (12 sources) Dyspnea; Translations: [Dyspnea, unspecified] Onset: 06-21-2010 06-21-2010 Episodic Other nutritional; endocrine; and metabolic disorders (5 sources) Body mass index (BMI) 28.0-28.9, adult; Translations: [Body mass index (BMI) 28.0-28.9, adult] Onset: 07-26-2013 07-26-2013 Episodic Residual codes; unclassified (1 source) FH: Hypertension; Translations: [Family history of ischemic heart disease and other diseases of the circulatory system] 01-26-2014 Episodic Unclassified (11 sources) FH: Raised blood lipids; Translations: [FH: Hypertension] 01-26-2014 Episodic Results Test Name Value Interpretation Reference Range Facil ity Vital Signs Date Time Vital Sign Value Performing Clinician Mahendra taylor 07-25-2016 13:54-0400 BMI (Body Mass Index) 28.35 kg/m2 [facility] Work Phone: 07-25-2016 13:54-0400 Body weight 82.1 kg [facility] Work Phone: 07-25-2016 13:54-0400 BP Diastolic 60 mm[Hg] [facility] Work Phone: 07-25-2016 13:54-0400 BP Systolic 106 mm[Hg] [facility] Work Phone: 07-25-2016 13:54-0400 Pulse (Heart Rate) 60 /min [facility] Work Phone: 07-25-2016 13:54-0400 Respiratory Rate 16 /min [facility] Work Phone: 07-25-2016 13:54-0400 Weight 82.1 kg [facility] Work Phone: 01-22-2016 11:15-0500 BMI (Body Mass Index) 28.5 kg/m2 Andre [facility] Work Phone: 01-22-2016 11:15-0500 BP Diastolic 62 mm[Hg] Harumi DeFinis [facility] Work Phone: 01-22-2016 11:15-0500 BP Systolic 122 mm[Hg] Harumi DeFinis [facility] Work Phone: 01-22-2016 11:15-0500 BSA (Body Surface Area) 1.94 m2 Harumi DeFinis [facility] Work Phone: 01-22-2016 11:15-0500 Pulse (Heart Rate) 68 /min Harumi DeFinis [facility] Work Phone: 01-22-2016 11:15-0500 Respiratory Rate 16 /min Harumi DeFinis [facility] Work Phone: 01-22-2016 11:15-0500 Weight 82.56 kg [facility] Work Phone: 02-01-2015 10:39-0500 Heart rate 62 /min Prema Macedo [facility] Work Phone: 01-25-2013 13:22-0500 Heart rate 406 ms Prema Macedo [facility] Work Phone: 07-24-2011 10:24-0400 Height 170.18 cm [facility] Work Phone: Procedures Date Procedure Procedure Detail Performing Clinician Start: 01-31-2017 End: 01-31-2017 *Hepatic Function Panel Dedrick Ureña MD Start: 01-31-2017 End: 01-31-2017 Lipid 1996 panel - Serum or Plasma Dedrick Ureña MD Start: 08-01-2016 End: 08-01-2016 *Hepatic Function Panel Dedrick Ureña MD Start: 08-01-2016 End: 08-01-2016 Lipid 1996 panel - Serum or Plasma Dedrick Ureña MD Start: 08-01-2016 End: 08-01-2016 *Hepatic Function Panel Dedrick Ureña MD Start: 08-01-2016 End: 08-01-2016 Lipid panel [AGGREGATE] Dedrick Ureña MD Start: 07-25-2016 End: 01-22-2017 Follow Up Appt 6 months Dedrick Ureña MD Start: 07-25-2016 End: 01-22-2017 MMM Dedrick Ureña MD Start: 07-25-2016 End: 07-25-2016 Dietary management education, guidance, and counseling Prema Macedo Start: 07-25-2016 End: 07-25-2016 Documentation of current medications Prema Macedo Start: 02-02-2016 End: 02-02-2016 *Hepatic Function Panel Dedrick Ureña MD Start: 02-02-2016 End: 02-02-2016 Lipid 1996 panel - Serum or Plasma Dedrick Ureña MD Start: 02-02-2016 End: 02-02-2016 *Hepatic Function Panel Dedrick Ureña MD Start: 02-02-2016 End: 02-02-2016 Lipid panel [AGGREGATE] Dedrick Ureña MD Start: 01-22-2016 End: 01-22-2016 Follow Up Appt 6 months Dedrick Ureña MD Start: 01-22-2016 End: 01-22-2016 MMM Dedrick Ureña MD Start: 01-22-2016 End: 01-22-2016 Follow Up Appt 6 months Dedrick Ureña MD Start: 01-22-2016 End: 01-22-2016 MMM Dedrick Ureña MD Start: 11-13-2015 End: 11-14-2015 Referral to business technology architect Dedrick marie MD Start: 11-13-2015 End: 11-14-2015 Referral to business technology architect Dedrick marie MD Start: 10-04-2015 End: 01-22-2017 Echocardiography Dedrick Ureña MD Start: 10-04-2015 End: 10-04-2015 Follow Up Appt 6 months Dedrick Ureña MD Start: 10-04-2015 End: 10-04-2015 GARRETTM Dedrick Ureña MD Start: 10-04-2015 End: 01-22-2017 Nuclear stress test -exercise Dedrick wakefield MD Start: 10-04-2015 End: 10-04-2015 Follow Up Appt 6 months Dedrick Ureña MD Start: 10-04-2015 End: 10-04-2015 MMM Dedrick Ureña MD Start: 08-03-2015 End: 08-03-2015 *Hepatic Function Panel Dedrick Ureña MD Start: 08-03-2015 End: 08-03-2015 Lipid 1996 panel - Serum or Plasma Dedrick Ureña MD Start: 08-03-2015 End: 08-03-2015 *Hepatic Function Panel Dedrick Ureña MD Start: 08-03-2015 End: 08-03-2015 Lipid panel [AGGREGATE] Dedrick Ureña MD Start: 02-01-2015 End: 02-01-2015 Ecg routine ecg w/least 12 lds w/i&r Minerva Spence PA-C Work Phone: Start: 02-01-2015 End: 02-01-2015 Follow Up Appt 6 months Minerva maguire PA-C Work Phone: Start: 02-01-2015 End: 02-01-2015 Lipid 1996 panel - Serum or Plasma Dedrick Ureña MD Start: 02-01-2015 End: 02-01-2015 PFM Minerva Spence PA-C Work Phone: Start: 02-01-2015 End: 02-01-2015 Electrocardiogram, complete Minerva Paz PA-C Work Phone: Start: 02-01-2015 End: 02-01-2015 Follow Up Appt 6 months Minerva maguire PA-C Work Phone: Start: 02-01-2015 End: 02-01-2015 Lipid panel [AGGREGATE] Dedrick Ureña MD Start: 02-01-2015 End: 02-01-2015 PFM Minerva Spence PA-C Work Phone: Start: 01-24-2015 End: 02-02-2015 *Hepatic Function Panel Dedrick Ureña MD Start: 01-24-2015 End: 02-02-2015 *Hepatic Function Panel Dedrick Ureña MD Start: 09-15-2014 End: 01-24-2015 *Hepatic Function Panel Dedrick Ureña MD Start: 09-15-2014 End: 01-24-2015 *Hepatic Function Panel Dedrick Ureña MD Start: 08-03-2014 End: 08-03-2014 *Hepatic Function Panel Minerva maguire PA-C Work Phone: Start: 08-03-2014 End: 08-03-2014 Lipid 1996 panel - Serum or Plasma Minerva Spence PA-C Work Phone: Start: 08-03-2014 End: 08-03-2014 *Hepatic Function Panel Minerva maguire PA-C Work Phone: Start: 08-03-2014 End: 08-03-2014 Lipid panel [AGGREGATE] Minerva maguire PA-C Work Phone: Start: 08-01-2014 End: 08-04-2014 *Hepatic Function Panel Dedrick Ureña MD Start: 08-01-2014 End: 08-02-2014 Documentation of current medications Dedrick Ureña MD Start: 08-01-2014 End: 08-01-2014 Follow Up Appt 6 months Dedrick Ureña MD Start: 08-01-2014 End: 08-04-2014 Lipid 1996 panel - Serum or Plasma Dedrick Ureña MD Start: 08-01-2014 End: 08-01-2014 MMM Dedrick Ureña MD Start: 08-01-2014 End: 08-04-2014 *Hepatic Function Panel Dedrick Ureña MD Start: 08-01-2014 End: 08-02-2014 Documentation of current medications Dedrick Ureña MD Start: 08-01-2014 End: 08-01-2014 Follow Up Appt 6 months Dedrick Ureña MD Start: 08-01-2014 End: 08-04-2014 Lipid panel [AGGREGATE] Dedrick Ureña MD Start: 08-01-2014 End: 08-01-2014 MMM Dedrick Ureña MD Start: 01-26-2014 End: 01-28-2014 *Hepatic Function Panel Minerva maguire PA-C Work Phone: Start: 01-26-2014 End: 01-24-2015 Follow Up Appt 6 months Minerva maguire PA-C Work Phone: Start: 01-26-2014 End: 01-28-2014 Lipid 1996 panel - Serum or Plasma Minerva Spence PA-C Work Phone: Start: 01-26-2014 End: 01-24-2015 PFM Minerva Spence PA-C Work Phone: Start: 01-26-2014 End: 01-28-2014 *Hepatic Function Panel Minerva maguire PA-C Work Phone: Start: 01-26-2014 End: 01-24-2015 Follow Up Appt 6 months Minerva maguire PA-C Work Phone: Start: 01-26-2014 End: 01-28-2014 Lipid panel [AGGREGATE] Minerva maguire PA-C Work Phone: Start: 01-26-2014 End: 01-24-2015 PFM Minerva Spence PA-C Work Phone: Start: 10-25-2013 End: 08-03-2014 *Hepatic Function Panel Dedrick Ureña MD Start: 10-25-2013 End: 08-03-2014 Lipid 1996 panel - Serum or Plasma Dedrick Ureña MD Start: 10-25-2013 End: 08-03-2014 *Hepatic Function Panel Dedrick Ureña MD Start: 10-25-2013 End: 08-03-2014 Lipid panel [AGGREGATE] Dedrick Ureña MD Start: 07-26-2013 End: 07-26-2013 Ecg routine ecg w/least 12 lds w/i&r Dderick Ureña MD Start: 07-26-2013 End: 01-11-2014 Echocardiography Dedrick Ureña MD Start: 07-26-2013 End: 07-26-2013 Follow Up Appt 6 months Dedrick Ureña MD Start: 07-26-2013 End: 07-26-2013 MMM Dedrick Ureña MD Start: 07-26-2013 End: 01-11-2014 Nuclear stress test -exercise Dedrick wakefield MD Start: 07-26-2013 End: 01-11-2014 Echocardiography Dedrick Ureña MD Start: 07-26-2013 End: 07-26-2013 Electrocardiogram, complete Dedrick donovan MD Start: 07-26-2013 End: 07-26-2013 Follow Up Appt 6 months Dedrick Ureña MD Start: 07-26-2013 End: 07-26-2013 MMM Dedrick Ureña MD Start: 07-26-2013 End: 01-11-2014 Nuclear stress test -exercise Dedrick wakefield MD Start: 04-24-2013 End: 05-03-2013 *Hepatic Function Panel Dedrick Ureña MD Start: 04-24-2013 End: 05-03-2013 Lipid 1996 panel - Serum or Plasma Dedrick Ureña MD Start: 04-24-2013 End: 05-03-2013 *Hepatic Function Panel Dedrick Ureña MD Start: 04-24-2013 End: 05-03-2013 Lipid panel [AGGREGATE] Dedrick Ureña MD Start: 01-25-2013 End: 01-25-2013 Ecg routine ecg w/least 12 lds w/i&r Minerva Spence PA-C Work Phone: Start: 01-25-2013 End: 01-25-2013 Follow Up Appt 6 months Minerva maguire PA-C Work Phone: Start: 01-25-2013 End: 01-25-2013 PFM Minerva Spence PA-C Work Phone: Start: 01-25-2013 End: 01-25-2013 Electrocardiogram, complete Minerva Paz PA-C Work Phone: Start: 01-25-2013 End: 01-25-2013 Follow Up Appt 6 months Minerva maguire PA-C Work Phone: Start: 01-25-2013 End: 01-25-2013 PF Minerva Spence PA-C Work Phone: Start: 07-22-2012 End: 11-11-2012 *Hepatic Function Panel Dedrick Ureña MD Start: 07-22-2012 End: 07-22-2012 eRx Transmitted during this visit (Medicare only) Dedrick Ureña MD Start: 07-22-2012 End: 07-22-2012 Follow Up Appt 6 months Dedrick Ureña MD Start: 07-22-2012 End: 11-11-2012 Lipid 1996 panel - Serum or Plasma Dedrick Ureña MD Start: 07-22-2012 End: 07-22-2012 GARRETTM Dedrick Ureña MD Start: 07-22-2012 End: 11-11-2012 *Hepatic Function Panel Dedrick Ureña MD Start: 07-22-2012 End: 07-22-2012 eRx Transmitted during this visit (Medicare only) Dedrick Ureña MD Start: 07-22-2012 End: 07-22-2012 Follow Up Appt 6 months Dedrick Ureña MD Start: 07-22-2012 End: 11-11-2012 Lipid panel [AGGREGATE] Dedrick Ureña MD Start: 07-22-2012 End: 07-22-2012 MMM Dedrick Ureña MD Start: 04-24-2012 End: 05-07-2012 *Hepatic Function Panel Dedrick Ureña MD Start: 04-24-2012 End: 05-07-2012 Lipid 1996 panel - Serum or Plasma Dedrick Ureña MD Start: 04-24-2012 End: 05-07-2012 *Hepatic Function Panel Dedrick Ureña MD Start: 04-24-2012 End: 05-07-2012 Lipid panel [AGGREGATE] Dedrick Ureña MD Start: 01-13-2012 End: 01-13-2012 Ecg routine ecg w/least 12 lds w/i&r Dedrick Ureña MD Start: 01-13-2012 End: 07-22-2012 Follow Up Appt 6 months Dedrick Ureña MD Start: 01-13-2012 End: 01-13-2012 Nuclear stress test -exercise Dedrick wakefield MD Start: 01-13-2012 End: 07-22-2012 Follow Up Appt 6 months Dedrick Ureña MD Start: 01-13-2012 End: 01-13-2012 Lipid panel [AGGREGATE] Dedrick Ureña MD Start: 01-13-2012 End: 01-13-2012 Nuclear stress test -exercise Dedrick wakefield MD Start: 11-01-2011 End: 11-06-2011 *Hepatic Function Panel Dedrick Ureña MD Start: 11-01-2011 End: 11-06-2011 Lipid 1996 panel - Serum or Plasma Dedrick Ureña MD Start: 11-01-2011 End: 11-06-2011 *Hepatic Function Panel Dedrick Ureña MD Start: 11-01-2011 End: 11-06-2011 Lipid panel [AGGREGATE] Dedrick Ureña MD Start: 09-06-2011 End: 09-20-2011 *Hepatic Function Panel Dedrick Ureña MD Start: 09-06-2011 End: 09-20-2011 Lipid 1996 panel - Serum or Plasma Dedrick Ureña MD Start: 09-06-2011 End: 09-20-2011 *Hepatic Function Panel Dedrick Ureña MD Start: 09-06-2011 End: 09-20-2011 Lipid panel [AGGREGATE] Dedrick Ureña MD Start: 07-24-2011 End: 07-24-2011 Ecg routine ecg w/least 12 lds w/i&r Dedrick Ureña MD Start: 07-24-2011 End: 07-24-2011 eRx Transmitted during this visit (Medicare only) Dedrick Ureña MD Start: 07-24-2011 End: 07-24-2011 Follow Up Appt 6 months Dedrick Ureña MD Start: 07-24-2011 End: 07-24-2011 Electrocardiogram, complete Dedrick donovan MD Start: 07-24-2011 End: 07-24-2011 eRx Transmitted during this visit (Medicare only) Dedrick Ureña MD Start: 07-24-2011 End: 07-24-2011 Follow Up Appt 6 months Dedrick Ureña MD Plan of Treatment Date Care Activity Detail Author Start: 01-31-2017 End: 01-31-2017 Appointment Appointment [facility] Work Phone: Start: 01-31-2017 End: 01-31-2017 *Hepatic Function Panel *Hepatic Function Panel [facility] Work Phone: Start: 01-31-2017 End: 01-31-2017 Lipid panel [AGGREGATE] *Lipid Profile CC PCP [facility] Work Phone: Start: 01-31-2017 End: 08-08-2016 *Hepatic Function Panel *Hepatic Function Panel [facility] Work Phone: Start: 01-31-2017 End: 08-08-2016 Lipid panel [AGGREGATE] *Lipid Profile CC PCP [facility] Work Phone: Start: 08-01-2016 End: 08-01-2016 *Hepatic Function Panel *Hepatic Function Panel [facility] Work Phone: Start: 08-01-2016 End: 08-01-2016 Lipid panel [AGGREGATE] *Lipid Profile CC PCP [facility] Work Phone: Start: 08-01-2016 End: 08-01-2016 *Hepatic Function Panel *Hepatic Function Panel [facility] Work Phone: Start: 08-01-2016 End: 08-01-2016 Lipid panel [AGGREGATE] *Lipid Profile CC PCP [facility] Work Phone: Start: 07-25-2016 End: 01-22-2017 Follow Up Appt 6 months Follow Up Appt 6 months [facility] Work Phone: Start: 07-25-2016 End: 01-22-2017 MMM MMM [facility] Work Phone: Start: 07-25-2016 End: 07-25-2016 Appointment Appointment [facility] Work Phone: Start: 07-25-2016 End: 07-25-2016 Follow Up Appt 6 months Follow Up Appt 6 months [facility] Work Phone: Start: 07-25-2016 End: 07-25-2016 MMM MMM [facility] Work Phone: Start: 02-02-2016 End: 02-02-2016 *Hepatic Function Panel *Hepatic Function Panel [facility] Work Phone: Start: 02-02-2016 End: 02-02-2016 Lipid panel [AGGREGATE] *Lipid Profile CC PCP [facility] Work Phone: Start: 02-02-2016 End: 02-02-2016 *Hepatic Function Panel *Hepatic Function Panel [facility] Work Phone: Start: 02-02-2016 End: 02-02-2016 Lipid panel [AGGREGATE] *Lipid Profile CC PCP [facility] Work Phone: Start: 01-22-2016 End: 01-22-2016 Follow Up Appt 6 months Follow Up Appt 6 months [facility] Work Phone: Start: 01-22-2016 End: 01-22-2016 MMM MMM [facility] Work Phone: Start: 01-22-2016 End: 01-22-2016 Follow Up Appt 6 months Follow Up Appt 6 months [facility] Work Phone: Start: 01-22-2016 End: 01-22-2016 MMM MMM [facility] Work Phone: Start: 11-13-2015 End: 11-13-2015 Cardiac Referral Cardiac Referral Alfonso Yohan Melendez [address], [place], [address] [facility] Work Phone: Start: 11-13-2015 End: 11-13-2015 Cardiac Referral Cardiac Referral Yohan Ramesh [address], [address], [place], [address] [facility] Work Phone: Start: 10-04-2015 End: 10-04-2015 Echocardiography Echocardiogram (complete) [facility] Work Phone: Start: 10-04-2015 End: 10-04-2015 Follow Up Appt 6 months Follow Up Appt 6 months [facility] Work Phone: Start: 10-04-2015 End: 10-04-2015 MMM MMM [facility] Work Phone: Start: 10-04-2015 End: 10-04-2015 Nuclear stress test -exercise Nuclear stress test -exercise [facility] Work Phone: Start: 10-04-2015 End: 10-04-2015 Echocardiography Echocardiogram (complete) [facility] Work Phone: Start: 10-04-2015 End: 10-04-2015 Follow Up Appt 6 months Follow Up Appt 6 months [facility] Work Phone: Start: 10-04-2015 End: 10-04-2015 MMM MMM [facility] Work Phone: Start: 10-04-2015 End: 10-04-2015 Nuclear stress test -exercise Nuclear stress test -exercise [facility] Work Phone: Start: 08-03-2015 End: 08-03-2015 *Hepatic Function Panel *Hepatic Function Panel [facility] Work Phone: Start: 08-03-2015 End: 08-03-2015 Lipid panel [AGGREGATE] *Lipid Profile CC PCP [facility] Work Phone: Start: 08-03-2015 End: 08-03-2015 *Hepatic Function Panel *Hepatic Function Panel [facility] Work Phone: Start: 08-03-2015 End: 08-03-2015 Lipid panel [AGGREGATE] *Lipid Profile CC PCP [facility] Work Phone: Start: 02-03-2015 End: 02-01-2015 Lipid panel [AGGREGATE] *Lipid Profile CC PCP [facility] Work Phone: Start: 02-03-2015 End: 02-01-2015 Lipid panel [AGGREGATE] *Lipid Profile CC PCP [facility] Work Phone: Start: 02-01-2015 End: 02-01-2015 Ecg routine ecg w/least 12 lds w/i&r EKG (In office) [facility] Work Phone: Start: 02-01-2015 End: 02-01-2015 Follow Up Appt 6 months Follow Up Appt 6 months [facility] Work Phone: Start: 02-01-2015 End: 02-01-2015 PFM PFM [facility] Work Phone: Start: 02-01-2015 End: 02-01-2015 Electrocardiogram, complete EKG (In office) [facility] Work Phone: Start: 02-01-2015 End: 02-01-2015 Follow Up Appt 6 months Follow Up Appt 6 months [facility] Work Phone: Start: 02-01-2015 End: 02-01-2015 PFM PFM [facility] Work Phone: Start: 01-24-2015 End: 02-02-2015 *Hepatic Function Panel *Hepatic Function Panel [facility] Work Phone: Start: 01-24-2015 End: 02-02-2015 *Hepatic Function Panel *Hepatic Function Panel [facility] Work Phone: Start: 09-15-2014 End: 01-24-2015 *Hepatic Function Panel *Hepatic Function Panel [facility] Work Phone: Start: 09-15-2014 End: 01-24-2015 *Hepatic Function Panel *Hepatic Function Panel [facility] Work Phone: Start: 08-03-2014 End: 08-03-2014 *Hepatic Function Panel *Hepatic Function Panel [facility] Work Phone: Start: 08-03-2014 End: 08-03-2014 Lipid panel [AGGREGATE] *Lipid Profile CC PCP [facility] Work Phone: Start: 08-03-2014 End: 08-03-2014 *Hepatic Function Panel *Hepatic Function Panel [facility] Work Phone: Start: 08-03-2014 End: 08-03-2014 Lipid panel [AGGREGATE] *Lipid Profile CC PCP [facility] Work Phone: Start: 08-01-2014 End: 08-04-2014 *Hepatic Function Panel *Hepatic Function Panel [facility] Work Phone: Start: 08-01-2014 End: 08-01-2014 Follow Up Appt 6 months Follow Up Appt 6 months [facility] Work Phone: Start: 08-01-2014 End: 08-04-2014 Lipid panel [AGGREGATE] *Lipid Profile CC PCP [facility] Work Phone: Start: 08-01-2014 End: 08-01-2014 MMM MMM [facility] Work Phone: Start: 08-01-2014 End: 08-04-2014 *Hepatic Function Panel *Hepatic Function Panel [facility] Work Phone: Start: 08-01-2014 End: 08-01-2014 Follow Up Appt 6 months Follow Up Appt 6 months [facility] Work Phone: Start: 08-01-2014 End: 08-04-2014 Lipid panel [AGGREGATE] *Lipid Profile CC PCP [facility] Work Phone: Start: 08-01-2014 End: 08-01-2014 MMM MMM [facility] Work Phone: Start: 01-26-2014 End: 01-28-2014 *Hepatic Function Panel *Hepatic Function Panel [facility] Work Phone: Start: 01-26-2014 End: 01-24-2015 Follow Up Appt 6 months Follow Up Appt 6 months [facility] Work Phone: Start: 01-26-2014 End: 01-28-2014 Lipid panel [AGGREGATE] *Lipid Profile CC PCP [facility] Work Phone: Start: 01-26-2014 End: 01-24-2015 PFM PFM [facility] Work Phone: Start: 01-26-2014 End: 01-28-2014 *Hepatic Function Panel *Hepatic Function Panel [facility] Work Phone: Start: 01-26-2014 End: 01-24-2015 Follow Up Appt 6 months Follow Up Appt 6 months [facility] Work Phone: Start: 01-26-2014 End: 01-28-2014 Lipid panel [AGGREGATE] *Lipid Profile CC PCP [facility] Work Phone: Start: 01-26-2014 End: 01-24-2015 PFM PFM [facility] Work Phone: Start: 10-25-2013 End: 01-28-2014 *Hepatic Function Panel *Hepatic Function Panel [facility] Work Phone: Start: 10-25-2013 End: 01-28-2014 Lipid panel [AGGREGATE] *Lipid Profile CC PCP [facility] Work Phone: Start: 10-25-2013 End: 01-28-2014 *Hepatic Function Panel *Hepatic Function Panel [facility] Work Phone: Start: 10-25-2013 End: 01-28-2014 Lipid panel [AGGREGATE] *Lipid Profile CC PCP [facility] Work Phone: Start: 07-26-2013 End: 07-26-2013 Ecg routine ecg w/least 12 lds w/i&r EKG (In office) [facility] Work Phone: Start: 07-26-2013 End: 07-26-2013 Echocardiography Echocardiogram (complete) [facility] Work Phone: Start: 07-26-2013 End: 07-26-2013 Follow Up Appt 6 months Follow Up Appt 6 months [facility] Work Phone: Start: 07-26-2013 End: 07-26-2013 MMM MMM [facility] Work Phone: Start: 07-26-2013 End: 07-26-2013 Nuclear stress test -exercise Nuclear stress test -exercise [facility] Work Phone: Start: 07-26-2013 End: 07-26-2013 Echocardiography Echocardiogram (complete) [facility] Work Phone: Start: 07-26-2013 End: 07-26-2013 Electrocardiogram, complete EKG (In office) [facility] Work Phone: Start: 07-26-2013 End: 07-26-2013 Follow Up Appt 6 months Follow Up Appt 6 months [facility] Work Phone: Start: 07-26-2013 End: 07-26-2013 MMM MMM [facility] Work Phone: Start: 07-26-2013 End: 07-26-2013 Nuclear stress test -exercise Nuclear stress test -exercise [facility] Work Phone: Start: 04-24-2013 End: 05-03-2013 *Hepatic Function Panel *Hepatic Function Panel [facility] Work Phone: Start: 04-24-2013 End: 05-03-2013 Lipid panel [AGGREGATE] *Lipid Profile CC PCP [facility] Work Phone: Start: 04-24-2013 End: 05-03-2013 *Hepatic Function Panel *Hepatic Function Panel [facility] Work Phone: Start: 04-24-2013 End: 05-03-2013 Lipid panel [AGGREGATE] *Lipid Profile CC PCP [facility] Work Phone: Start: 01-25-2013 End: 01-25-2013 Ecg routine ecg w/least 12 lds w/i&r EKG (In office) [facility] Work Phone: Start: 01-25-2013 End: 01-25-2013 Follow Up Appt 6 months Follow Up Appt 6 months [facility] Work Phone: Start: 01-25-2013 End: 01-25-2013 PFM PFM [facility] Work Phone: Start: 01-25-2013 End: 01-25-2013 Electrocardiogram, complete EKG (In office) [facility] Work Phone: Start: 01-25-2013 End: 01-25-2013 Follow Up Appt 6 months Follow Up Appt 6 months [facility] Work Phone: Start: 01-25-2013 End: 01-25-2013 PFM PFM [facility] Work Phone: Start: 07-22-2012 End: 11-11-2012 *Hepatic Function Panel *Hepatic Function Panel [facility] Work Phone: Start: 07-22-2012 End: 07-22-2012 Follow Up Appt 6 months Follow Up Appt 6 months [facility] Work Phone: Start: 07-22-2012 End: 11-11-2012 Lipid panel [AGGREGATE] *Lipid Profile CC PCP [facility] Work Phone: Start: 07-22-2012 End: 07-22-2012 MMM MMM [facility] Work Phone: Start: 07-22-2012 End: 11-11-2012 *Hepatic Function Panel *Hepatic Function Panel [facility] Work Phone: Start: 07-22-2012 End: 07-22-2012 Follow Up Appt 6 months Follow Up Appt 6 months [facility] Work Phone: Start: 07-22-2012 End: 11-11-2012 Lipid panel [AGGREGATE] *Lipid Profile CC PCP [facility] Work Phone: Start: 07-22-2012 End: 07-22-2012 MMM MMM [facility] Work Phone: Start: 04-24-2012 End: 05-07-2012 *Hepatic Function Panel *Hepatic Function Panel [facility] Work Phone: Start: 04-24-2012 End: 05-07-2012 Lipid panel [AGGREGATE] *Lipid Profile [facility] Work Phone: Start: 04-24-2012 End: 05-07-2012 *Hepatic Function Panel *Hepatic Function Panel [facility] Work Phone: Start: 04-24-2012 End: 05-07-2012 Lipid panel [AGGREGATE] *Lipid Profile [facility] Work Phone: Start: 01-13-2012 End: 01-13-2012 Ecg routine ecg w/least 12 lds w/i&r EKG (In office) [facility] Work Phone: Start: 01-13-2012 End: 07-22-2012 Follow Up Appt 6 months Follow Up Appt 6 months [facility] Work Phone: Start: 01-13-2012 End: 01-13-2012 Nuclear stress test -exercise Nuclear stress test -exercise [facility] Work Phone: Start: 01-13-2012 End: 01-13-2012 Electrocardiogram, complete EKG (In office) [facility] Work Phone: Start: 01-13-2012 End: 07-22-2012 Follow Up Appt 6 months Follow Up Appt 6 months [facility] Work Phone: Start: 01-13-2012 End: 01-13-2012 Nuclear stress test -exercise Nuclear stress test -exercise [facility] Work Phone: Start: 11-01-2011 End: 11-06-2011 *Hepatic Function Panel *Hepatic Function Panel [facility] Work Phone: Start: 11-01-2011 End: 11-06-2011 Lipid panel [AGGREGATE] *Lipid Profile [facility] Work Phone: Start: 11-01-2011 End: 11-06-2011 *Hepatic Function Panel *Hepatic Function Panel [facility] Work Phone: Start: 11-01-2011 End: 11-06-2011 Lipid panel [AGGREGATE] *Lipid Profile [facility] Work Phone: Start: 09-06-2011 End: 09-20-2011 *Hepatic Function Panel *Hepatic Function Panel [facility] Work Phone: Start: 09-06-2011 End: 09-20-2011 Lipid panel [AGGREGATE] *Lipid Profile [facility] Work Phone: Start: 09-06-2011 End: 09-20-2011 *Hepatic Function Panel *Hepatic Function Panel [facility] Work Phone: Start: 09-06-2011 End: 09-20-2011 Lipid panel [AGGREGATE] *Lipid Profile [facility] Work Phone: Start: 07-24-2011 End: 07-24-2011 Ecg routine ecg w/least 12 lds w/i&r EKG (In office) [facility] Work Phone: Start: 07-24-2011 End: 07-24-2011 Follow Up Appt 6 months Follow Up Appt 6 months [facility] Work Phone: Start: 07-24-2011 End: 07-24-2011 Electrocardiogram, complete EKG (In office) [facility] Work Phone: Start: 07-24-2011 End: 07-24-2011 Follow Up Appt 6 months Follow Up Appt 6 months [facility] Work Phone: [facility] Work Phone: Additional Source Comments FOR RECORDS PERTAINING TO PATIENTS WHO ARE OR HAVE BEEN ENROLLED IN A CHEMICAL DEPENDENCY/SUBSTANCEABUSE PROGRAM, SOME INFORMATION MAY BE OMITTED. This clinical summary was aggregated from multiple sources. Caution should be exercised in using it in the provision of clinical care. This summary normalizes information from multiple sources, and as a consequence, information in this document may materially change the coding, format and clinical context of patient data. In addition, data may be omitted in some cases. CLINICAL DECISIONS SHOULD BE BASED ON THE PRIMARY CLINICAL RECORDS. [facility] [employer] [facility]. provides no warranty or guarantee of the accuracy or completeness of information in this document.
== END | disposition home or self-care (01) ==
LOC: MTRAD 14:21
PROVIDERS: PCP Family Medicine; Referring Provider Physician Assistant; Visit Provider Physician Assistant
DX: R06.02 Shortness of breath (principal)
CPT/HCPCS: 71046

== ENCOUNTER → 2023-06-09 | Outpatient (CLI) | payer MEDICARE, SELFPAY ==
[2023-06-09 13:13] LABS: Hematocrit 47.9 % (40-54); Hemoglobin 15.8 g/dL (13.0-16.5); Mean Corpuscular Hgb 31.9 pg (27.0-32.0); Mean Corpuscular Volume 96.6 fL (80-94); Platelet Count 271 K/mm3 (150-450); RBC Distribution Width CV 13.5 % (11.6-14.6); RBC Distribution Width SD 47.8 fl (35.1-43.9); Red Blood Count 4.96 M/mm3 (4.6-6.2)
== END | disposition home or self-care (01) ==
LOC: LAB 12:56
PROVIDERS: PCP Family Medicine; Referring Provider Internal Medicine Pulmonary Disease; Visit Provider Internal Medicine Pulmonary Disease
DX: R06.02 Shortness of breath (principal)
CPT/HCPCS: 36415; 85027

== ENCOUNTER → 2024-06-19 | Outpatient (CLI) | payer MEDICARE, SELFPAY ==
[2024-06-19 11:15] LABS: AST(SGOT) 26 U/L (<=37); Alanine Aminotransfer ALT/SGPT 22 U/L (<=46); Albumin, Serum 4.2 g/dL (3.4-4.8); Alkaline Phosphatase 147 U/L (40-129); Bilirubin, Direct 0.36 mg/dL (0.00-0.30); Cholesterol 133 mg/dL (<=200); Globulin 3.1 g/dL (2.2-4.2); High Density Lipoprotein 43 mg/dL; Low Density Lipoprotein Calc. 72 mg/dL; Protein, Total 7.3 g/dL (5.9-8.4); Total Bilirubin 0.81 mg/dL (0.00-1.30); Triglycerides 87 mg/dL; Very Low Density Lipoprotein 17 mg/dL (5-40); cholesterol:hdl ratio screen 3.08
== END | disposition home or self-care (01) ==
PROVIDERS: PCP Family Medicine; Referring Provider Nurse Practitioner Gerontology; Visit Provider Nurse Practitioner Gerontology
DX: E78.00 Pure hypercholesterolemia, unspecified (principal)
CPT/HCPCS: 36415; 80061; 80076

== ENCOUNTER 2024-06-22 08:00 | Outpatient (RCR) | payer SELFPAY | END 2024-06-23 23:59 | LOC: PR 08:00 | PROVIDERS: PCP Family Medicine; Referring Provider Internal Medicine Pulmonary Disease; Visit Provider Internal Medicine Pulmonary Disease | DX: Z00.00 Encounter for general adult medical examination without abnormal findings (principal) ==

== ENCOUNTER 2024-07-22 08:00 | Outpatient (RCR) | payer SELFPAY | END 2024-07-24 23:59 | LOC: PR 08:00 | PROVIDERS: PCP Family Medicine; Referring Provider Internal Medicine Pulmonary Disease; Visit Provider Internal Medicine Pulmonary Disease | DX: Z00.00 Encounter for general adult medical examination without abnormal findings (principal) ==

== ENCOUNTER 2024-07-27 06:14 | Outpatient (RCR) | payer SELFPAY | END 2024-08-23 23:59 | LOC: PR 06:14 | PROVIDERS: PCP Family Medicine; Referring Provider Internal Medicine Pulmonary Disease; Visit Provider Internal Medicine Pulmonary Disease | DX: Z00.00 Encounter for general adult medical examination without abnormal findings (principal) ==

== ENCOUNTER → 2024-07-28 | Outpatient (CLI) | payer MEDICARE, SELFPAY ==
--- NOTE | 2024-07-28 11:03 | RAD_ITS ---
PROCEDURE: CHEST PA AND LATERAL 07/28/2024 REASON FOR EXAM: COUGH. Shortness of breath TECHNIQUE: Three-view PA and lateral chest. COMPARISON: PA and lateral chest of 03/24/2023. RAD/Chest PA and Lateral IMPRESSION: Chronic lung changes and hyperinflation appear similar to the prior examination . No focal infiltrate is seen. Stable superior segment left lower lobe densely calcified nodule. No pleural effusion or pneumothorax is seen. The cardiomediastinal silhouette is stable, without evidence of cardiomegaly. A partially calcified aorta appears somewhat progressed since the prior exam. [id number] degenerative changes of the visualized spine are seen. No evidence of acute cardiopulmonary disease. Reading Location: [id number]
--- OUTSIDE RECORDS SUMMARY | 2024-07-28 20:26 | XMS RPT_ITS | CCD ---
Author Organization [facility] Care Team Providers Care Hospital Liaison Name Role Phone Andre Ramos Unavailable Unavailable Dedrick Ureña MD Unavailable [phone] Prema Macedo Unavailable Andre Ramos Unavailable Unavailable Lina LEYVA, Jeimy Kulkarni Unavailable Unavailable Prema Macedo Unavailable Dr. Freddy Carson Primary Care Provider [phone] Dr. Freddy Carson Referring Provider MALU Carter Attending Provider Dr. Parviz Hernandez Attending Provider [phone] MALU Carter Referring Provider Dr. Freddy Carson Primary Care Provider [phone] Dr. Freddy Carson Referring Provider [phone] MALU Carter Attending Provider Dr. Dedrick Ureña Attending Provider [phone] MALU Soto Attending Provider Dr. Parviz Hernandez Attending Provider [phone] Dr. Dedrick Ureña Other Provider [phone] Freddy Carson Primary Care Provider [phone] Dr. Freddy Carson Attending Provider [phone] Dr. Freddy Carson Referring Provider [phone] Dr. Freddy Carson Primary Care Provider [phone] Dr. Freddy Carson Referring Provider [phone] [facility] CENTRAL STERILE TECHNICIAN, CENTRAL STERILE TECHNICIAN-Jennifer Zaidi Attending Provider [phone] MALU Carter Attending Provider [phone] Dr. Freddy Carson Primary Care Provider [phone] Dr. Freddy Carson Referring Provider [phone] [facility] CENTRAL STERILE TECHNICIAN, CENTRAL STERILE TECHNICIAN-C Alfonso Zaidi Attending Provider [phone] MALU Carter Attending Provider [phone] Freddy Carson Attending Provider [phone] MALU Faust Attending Provider Dr. Freddy Carson DO Primary Care Provider [phone] Dr. Freddy Carson DO Referring Provider [phone] Jennifer Kelly Attending Provider [phone] Fitz CENTRAL STERILE TECHNICIAN-CJennifer Referring Provider [phone] Donnie MELENDREZ, Dr. Remigio Huber Attending Provider Dr. Remigio Fields MD, V Referring Provider Freddy Carson R Primary Care Unavailable Minerva Faust Attending Unavail able Brown, Freddy R Referring Unavailable Jennifer Byrnes Attending Unavailable Jennifer Byrnes Referring Unavailable Brown, Freddy R Primary Care Unavailable Brown, Freddy R Primary Care Unavailable Sibdhruv, Remigio Huber Attending Unavailable Sibilia, Remigio Huber Referring Unavailable Brown, Freddy R Primary Care Unavailable Donnie, Remigio Huber Attending Unavailable Sibdhruv, Remigio Huber Referring Unavailable Brown, Freddy R Primary Care Unavailable Sibdhruv, Remigio Huber Attending Unavailable Sibilia, Remigio Huber Referring Unavailable Brown, Freddy R Referring Unavailable Jennifer Byrnes Attending Unavailable Brown, Freddy R Primary Care Unavailable Brown, Freddy R Primary Care Unavailable Steven Miguel Attending Unavailable Brown, Freddy R Referring Unavailable Brown, Freddy R Primary Care Unavailable Brown, Freddy R Referring Unavailable Dav Soto Attending Unavailable Allergies Allergy Classification Reported Allergen(s) Allergy Type Date of Onset Reaction(s) Facility (6 sources) cefuroxime drug allergy 07-24-2011 [facility] Work Phone: (5 sources) NKA drug allergy 07-24-2011 [facility] Work Phone: (6 sources) Cefuroxime Drug Allergy 01-22-2021 Nausea [facility] (1 source) Cefuroxime Drug Allergy 06-18-2024 [facility] Repository Medications Current Medications Medication Drug Class(es) Dates Sig (Normalized) Sig (Original) aspirin 81 mg delayed release oral tablet (20 sources) Nonsteroidal Anti-inflammatory Drug Start: 06-21-2010 Aspirin 81 MG tablet,delayed release (DR/EC) Active 81 mg PO January 10, 2016 1:00am Start: 06-21-2010 take 1 tablet by michael th once daily ASPIRIN 81 MG TABS One tablet by mouth daily ASPIRIN [id number] Minerva Spence PA-C Start: 06-21-2010 take 1 tablet by michael th once daily ASPIRIN 81 MG TABS One tablet by mouth daily ASPIRIN [id number] Andre Ramos Vkjkfaofyg-Aeuzntwo-Qsiwpjcj ol (1 source) Corticosteroid, beta2-Adrenergic Agonist Start: 06-18-2024 Syqoztmdni-Cqcflryu-Fxjymvwa ol (Breztri Aerosphere) 160-9-4.8 mcg/actuation HFA aerosol inhaler Active 2 NMA INHALATION TWICE A DAY June 18, 2024 12:00am busPIRone hydrochloride 10 m g oral tablet (2 sources) Start: 05-27-2023 t a k e 1 t a b l e t b y m o u t h t w i c e d a i l y Buspirone 10 mg tablet Active 10 mg PO TWICE A DAY May 27, 2023 12:00am handicap placard (2 sources) Start: 05-27-2023 handicap placard Active 0 .Route .MEDSUPPLY May 27, 2023 12:00am Duration 5 years, Unable to walk 50 yards --Diagnosis is COPD 200 actuat levalbuterol 0.04 5 mg/actuat metered dose inhaler (11 sources) beta2-Adrenergic Agonist Start: 03-25-2018 Levalbuterol Tartrate 45 mcg/actuation HFA aerosol inhaler Active 2 NMA INHALATION EVERY 6 HOURS March 25, 2018 1:00am Start: 03-25-2018 Levalbuterol T artrate Active 2 INH INHALATION EVERY 6 HOURS March 25, 2018 1:00am Start: 08-01-2014 XOPENEX HFA 45 MCG/ACT AERO as directed LEVALBUTEROL TARTRATE [id number] Dedrick Ureña MD Start: 08-01-2014 XOPENEX HFA 45 MCG/ACT AERO as directed LEVALBUTEROL TARTRATE [id number] Dedrick Ureña MD nitroglycerin 0.4 mg sublingual tablet (20 sources) Nitrate Vasodilator Start: 01-11-2022 End: 06-18-2024 Nitroglycerin 0.4 mg tablet, sublingual Active 0.4 mg SL every 5 to 15 minutes as needed for Chest Pain June 18, 2024 11:46am Start: 01-11-2022 Nitroglycerin Active 0.4 MG SL every 5 to 15 minutes January 11, 2022 12:09pm Start: 01-10-2016 End: 01-11-2022 Nitroglycerin 0.4 mg tablet, sublingual Discontinued 0.4 mg SL Q5M as needed for Chest Pain December 20, 2020 11:18am January 11, 2022 12:10pm Start: 01-10-2016 End: 01-11-2022 Nitroglycerin Discontinued 0 .4 MG SL Q5M February 10, 2019 1:10pm December 20, 2020 11:18am Start: 06-21-2010 NITROSTAT 0.4 MG SUBL 1 tablet under tongue every 5 min up to 3 X NITROGLYCERIN [id number] Dedrick Ureña MD Completed/Discontinued Medications Medication Drug Class(es) Dates Sig (Normalized) Sig (Original) Aclidinium [place] (3 sources) Start: 12-22-2022 End: 06-18-2024 Aclidinium [place] 400 mcg/actuation aerosol powdr breath activated Discontinued 1 NMA INHALATION TWICE A DAY December 22, 2022 12:00am June 18, 2024 11:31am Start: 12-22-2022 Aclidinium Bro mide Active 1 INH INHALATION TWICE A DAY December 22, 2022 12:00am Start: 12-22-2022 Aclidinium Bro mide Active 1 INH INHALATION TWICE A DAY December 21, 2022 11:00pm [id number] actuat albuterol 0.09 mg/actuat metered dose inhaler (20 sources) beta2-Adrenergic Agonist Start: 01-10-2016 End: 01-31-2017 Albuterol Sulfate 8.5 GM HFA aerosol inhaler Discontinued 8.5 g January 10, 2016 1:00am January 31, 2017 4:34pm Start: 01-10-2016 End: 01-31-2017 Albuterol Sulfate Discontinu ed 8.5 GM January 10, 2016 1:00am January 31, 2017 4:34pm Start: 08-01-2014 PROVENTIL HFA 108 (90 Base) MCG/ACT AERS as needed ALBUTEROL SULFATE [id number] Minerva Spence PA-C Start: 08-01-2014 PROVENTIL HFA 108 (90 Base) MCG/ACT AERS as needed ALBUTEROL SULFATE [id number] Andre Rubio Yesikajass Start: 08-01-2014 PROVENTIL HFA 108 (90 Base) MCG/ACT AERS as needed ALBUTEROL SULFATE [id number] Dedrick Ureña MD Start: 08-01-2014 PROVENTIL HFA 108 (90 Base) MCG/ACT AERS as needed ALBUTEROL SULFATE [id number] Minerva Spence PA-C amLODIPine 10 mg oral tablet (20 sources) Dihydropyridine Calcium Channel Mary Start: 06-21-2010 End: 10-13-2023 take 1 tablet by mouth once daily Amlodipine 10 mg tablet Discontinued 10 mg PO DAILY April 30, 2021 11:50am July 18, 2022 11:53am amoxicillin 875 mg / clavulanate 125 mg oral tablet (6 sources) Penicillin-class Antibacterial Start: 06-04-2021 End: 09-17-2021 Amoxicillin-Pot Clavulanate 875-125 mg tablet Discontinued 1 {tbl} PO TWICE A DAY June 04, 2021 12:00am September 17, 2021 4:26pm Start: 06-04-2021 End: 09-17-2021 take 1 tablet by mouth twice daily Amoxicillin-Pot Clavulanate Discontinued 1 TABLET PO TWICE A DAY June 04, 2021 12:00am September 17, 2021 4:26pm atorvastatin 80 mg oral tablet (20 sources) HMG-CoA Reductase Inhibitor Start: 09-20-2011 End: 10-13-2023 take 1 tablet by mouth at bedtime Atorvastatin 80 mg tablet Discontinued 80 mg PO AT BEDTIME April 30, 2021 11:50am July 18, 2022 11:52am azithromycin 250 mg oral tablet (15 sources) Macrolide Antimicrobial Start: 11-13-2022 End: 12-22-2022 take 2-5 tablets by mouth once daily Azithromycin 250 mg tablet Discontinued 0 PO .COMPLEX November 13, 2022 12:00am December 22, 2022 10:48am take 500 mg today (day 1), then 250 mg for 4 days (days 2-5) PO Start: 11-13-2022 End: 12-22-2022 Azithromycin Discontinued 0 PO .COMPLEX November 13, 2022 12:00am December 22, 2022 10:48am take 500 mg today (day 1), then 250 mg for 4 days (days 2-5) PO Start: 06-04-2021 End: 09-17-2021 Azithromycin 250 mg tablet D iscontinued 250 mg PO daily June 04, 2021 12:00am September 17, 2021 4:26pm 2 tablets today, then 1 tablet daily on days 2 through 5 Start: 02-25-2019 End: 11-29-2019 Azithromycin 250 mg tablet D iscontinued 0 PO .COMPLEX February 25, 2019 1:00am November 29, 2019 11:05am Take two tablets by mouth on day one then one tablet by mouth on days 2-5 benzonatate 100 mg oral capsule (5 sources) Non-narcotic Antitussive Start: 01-18-2022 End: 07-18-2022 take 2 capsules by mouth three times daily as needed for cough Benzonatate 100 mg capsule Discontinued 200 mg PO THREE TIMES A DAY as needed for cough January 18, 2022 1:00am July 18, 2022 11:32am Start: 01-18-2022 End: 07-18-2022 take 200 mg by mouth three times daily Benzonatate Discontinued 200 MG PO THREE TIMES A DAY January 18, 2022 1:00am July 18, 2022 11:32am 120 actuat budesonide 0.16 mg/actuat / formoterol fumarate 0.0045 mg/actuat metered dose inhaler (20 sources) Corticosteroid, beta2-Adrenergic Agonist Start: 01-10-2016 End: 06-18-2024 Budesonide-Formoterol 160-4.5 mcg/actuation HFA aerosol inhaler Discontinued 2 NMA INHALATION TWICE A DAY November 24, 2018 3:37pm June 18, 2024 11:31am Start: 01-10-2016 End: 11-24-2018 take 1 puff(s) by inhalation twice daily Budesonide-Formoterol Active 2 PUFF INHALATION TWICE A DAY November 24, 2018 3:37pm Start: 06-21-2010 SYMBICORT 160- 4.5 MCG/ACT AERO Take as directed BUDESONIDE-FORMOTEROL FUMARATE [id number] Andre Ramos Start: 06-21-2010 SYMBICORT 160- 4.5 MCG/ACT AERO Take as directed BUDESONIDE-FORMOTEROL FUMARATE [id number] Andre Ramos Start: 06-21-2010 SYMBICORT 160- 4.5 MCG/ACT AERO Take as directed BUDESONIDE-FORMOTEROL FUMARATE [id number] Pennie Ash Start: 06-21-2010 SYMBICORT 160- 4.5 MCG/ACT AERO Take as directed BUDESONIDE-FORMOTEROL FUMARATE [id number] Minerva Spence PA-C celecoxib 200 mg oral capsule (6 sources) Nonsteroidal Anti-inflammatory Drug Start: 03-25-2018 End: 05-28-2023 take 1 capsule by mouth once daily as needed Celecoxib (Celebrex) 200 mg capsule Discontinued 200 mg PO DAILY as needed March 25, 2018 1:00am May 28, 2023 11:35am clopidogrel 75 mg oral tablet (20 sources) [id number] Platelet Inhibitor Start: 06-21-2010 End: 12-10-2018 take 1 tablet by mouth once daily Clopidogrel 75 MG tablet Discontinued 75 mg PO DAILY January 10, 2016 1:00am November 17, 2017 11:35am doxycycline monohydrate 100 mg oral capsule (19 sources) Tetracycline-class Drug Start: 12-19-2023 End: 12-29-2023 take 1 capsule by mouth twice daily Doxycycline Monohydrate 100 mg capsule Discontinued 100 mg PO TWICE A DAY 13 12December 19, 2023 12:00am December 28, 2023 12:00am December 29, 2023 1:08am Start: 03-24-2023 End: 05-27-2023 take 1 tablet by mouth twice daily Doxycycline Hyclate 100 mg tablet Discontinued 100 mg PO TWICE A DAY March 24, 2023 1:00am May 27, 2023 11:28am Start: 02-16-2023 End: 02-26-2023 take 1 capsule by mouth twice daily Doxycycline Hyclate 100 mg capsule Discontinued 100 mg PO TWICE A DAY 13 12February 16, 2023 1:10pm February 25, 2023 1:00am February 26, 2023 1:05am Start: 12-22-2022 End: 01-01-2023 take 1 capsule by mouth twice daily Doxycycline Hyclate 100 mg capsule Discontinued 100 mg PO TWICE A DAY 13 12December 22, 2022 12:00am December 31, 2022 1:00am January 01, 2023 1:04am Start: 09-06-2022 End: 09-16-2022 take 1 capsule by mouth twice daily Doxycycline Hyclate 100 mg capsule Discontinued 100 mg PO TWICE A DAY 13 12September 06, 2022 12:00am September 15, 2022 12:00am September 16, 2022 12:03am Start: 01-22-2021 End: 09-17-2021 take 1 capsule by mouth twice daily Doxycycline Monohydrate 100 mg capsule Discontinued 100 mg PO TWICE A DAY January 22, 2021 1:00am September 17, 2021 4:26pm 30 actuat fluticasone furoate 0.1 mg/actuat / vilanterol 0.025 mg/actuat dry powder inhaler (6 sources) Corticosteroid, beta2-Adrenergic Agonist Start: 01-10-2016 End: 01-31-2017 Fluticasone Furoate-Vilanterol 1 EACH blister with device Discontinued 1 NMA IH January 10, 2016 1:00am January 31, 2017 4:34pm 12 hr guaiFENesin 1200 mg extended release oral tablet (6 sources) Start: 01-10-2016 End: 01-31-2017 take 1 tablet by mouth twice daily Guaifenesin 1,200 MG tablet Discontinued 1200 mg PO TWICE A DAY January 10, 2016 1:00am January 31, 2017 4:34pm levoFLOXacin 750 mg oral tablet (11 sources) Quinolone Antimicrobial Start: 01-24-2022 End: 07-18-2022 take 1 tablet by mouth once daily Levofloxacin 750 mg tablet Discontinued 750 mg PO DAILY January 24, 2022 1:00am July 18, 2022 11:33am Start: 12-10-2018 End: 02-25-2019 take 1 tablet by mouth once daily Levofloxacin 750 mg tablet Discontinued 750 mg PO DAILY December 10, 2018 12:00am February 25, 2019 11:32am methylPREDNISolone 4 mg oral tablet (8 sources) Corticosteroid Start: 11-13-2022 End: 11-19-2022 take 1 tablet by mouth once Methylprednisolone (Medrol (Camron)) 4 mg tablets,dose pack Discontinued 4 mg PO per package directions 14 08November 13, 2022 12:00am November 18, 2022 12:00am November 19, 2022 12:05am Start: 01-18-2022 End: 01-24-2022 take 1 tablet by mouth once Methylprednisolone (Medrol (Camrno)) 4 mg tablets,dose pack Discontinued 4 mg PO per package directions 14 08January 18, 2022 1:00am January 23, 2022 1:00am January 24, 2022 1:03am 24 hr metoprolol succinate 25 mg extended release oral tablet (20 sources) beta-Adrenergic Mary Start: 01-31-2017 End: 11-17-2017 Metoprolol Succinate 25 tablet extended release 24 hr Discontinued PO 90 January 31, 2017 1:00am November 17, 2017 11:34am Start: 01-10-2016 End: 01-31-2017 take 1 tablet by mouth once daily Metoprolol Tartrate 25 MG tablet Discontinued 25 mg PO DAILY January 10, 2016 1:00am January 31, 2017 4:34pm Start: 06-21-2010 End: 10-13-2023 take 1 tablet by mouth once daily Metoprolol Succinate 25 mg tablet extended release 24 hr Discontinued 25 mg PO DAILY April 30, 2021 11:50am July 18, 2022 11:53am pravastatin sodium 80 mg oral tablet (12 sources) HMG-CoA Reductase Inhibitor Start: 06-07-2011 take 1 tablet by mouth once daily at bedtime PRAVASTATIN SODIUM 80 MG TABS One tablet by mouth daily at bedtime PRAVASTATIN SODIUM [id number] Dedrick Ureña MD predniSONE 10 mg oral tablet (20 sources) Start: 12-19-2023 End: 12-31-2023 Prednisone 10 mg tablet Discontinued 10 mg PO daily 22 02December 19, 2023 12:00am December 30, 2023 1:00am December 31, 2023 1:08am Take 4 tabs once daily days 1-3 3 tabs once daily days 4-6 2 tabs once daily days 7-9 and 1 tab once daily days 10-12. Start: 03-24-2023 End: 05-27-2023 take 4 tablets by mouth once daily, then take 3 tablets by mouth once daily, then take 2 tablets by mouth once daily, then take 1 tablet by mouth once daily Prednisone 10 mg tablet Discontinued 10 mg PO As Directed March 24, 2023 1:00am May 27, 2023 11:29am 4 tablets daily x 3 days, then 3 tablets daily x 3 days, then 2 tablets daily x 3 days, then 1 tablet daily x 3 days Start: 02-16-2023 End: 03-03-2023 Prednisone 10 mg tablet Discontinued 10 mg PO .COMPLEX 35 February 16, 2023 1:10pm March 02, 2023 1:00am March 03, 2023 1:04am 10 mg orally; 40mg x5 days, 20mg x5 days, 10mg x5 days Start: 02-16-2023 End: 03-03-2023 Prednisone Discontinued 10 M G PO .COMPLEX 35 February 16, 2023 1:10pm March 03, 2023 1:04am 10 mg orally; 40mg x5 days, 20mg x5 days, 10mg x5 days Start: 12-22-2022 End: 01-06-2023 Prednisone 10 mg tablet Discontinued 10 mg PO .COMPLEX 35 December 22, 2022 12:00am January 05, 2023 1:00am January 06, 2023 1:03am 10 mg orally; 40mg x5 days, 20mg x5 days, 10mg x5 days Start: 12-22-2022 End: 01-06-2023 Prednisone Discontinued 10 M G PO .COMPLEX 35 December 22, 2022 12:00am January 06, 2023 1:03am 10 mg orally; 40mg x5 days, 20mg x5 days, 10mg x5 days Start: 01-22-2021 End: 07-18-2022 take 1 tablet by mouth once daily as needed Prednisone 50 mg tablet Discontinued 50 mg PO DAILY as needed January 11, 2022 12:09pm July 18, 2022 11:34am Start: 03-05-2019 End: 11-29-2019 Prednisone 10 mg tablet Discontinued 0 PO daily March 05, 2019 1:00am November 29, 2019 11:06am 4 tabs for 3 days, then 3 tabs for 3 days, then 2 tabs for 3 days, then 1 tab for 3 days PO QDAY; administer with food or milk Start: 12-10-2018 End: 11-29-2019 take 2 tablets by mouth once daily at mealtime Prednisone 20 mg tablet Discontinued 40 mg PO daily February 25, 2019 1:00am November 29, 2019 11:06am administer with food or milk Start: 12-10-2018 End: 11-29-2019 take 40 mg by mouth once daily at mealtime Prednisone Discontinued 40 MG PO daily February 25, 2019 1:00am November 29, 2019 11:06am administer with food or milk simvastatin 80 mg oral tablet (12 sources) HMG-CoA Reductase Inhibitor Start: 06-21-2010 End: 06-07-2011 take 1 tablet by mouth at bedtime SIMVASTATIN 80 MG TABS One tablet by mouth at bedtime. SIMVASTATIN [id number] Breonna Silver RN sulfamethoxazole 800 mg / trimethoprim 160 mg oral tablet (5 sources) Dihydrofolate Reductase Inhibitor Antibacterial, Sulfonamide Antimicrobial Start: 09-17-2021 End: 09-24-2021 Sulfamethoxazole- Trimethoprim (Bactrim Ds) 800-160 mg tablet Discontinued 1 {tbl} PO Q12H 14 7 September 17, 2021 12:00am September 23, 2021 12:00am September 24, 2021 12:03am Problems Active Problems Problem Classification Problem Date Documented Date Episodic/Chronic Abdominal hernia (5 sources) Umbilical hernia; Translations: [Umbilical hernia without obstruction or gangrene] 07-18-2022 Episodic Acute bronchitis (13 sources) Acute bronchitis; Translations: [Acute bronchitis, unspecified] Episodic 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; 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] Onset: 08-05-2013 08-05-2013 Chronic Chronic obstructive pulmonary disease and bronchiectasis (20 sources) Chronic obstructive lung disease; Translations: [Chronic obstructive pulmonary disease, unspecified] Onset: 06-21-2010 06-21-2010 Chronic Coronary atherosclerosis and other heart disease (19 sources) Atherosclerotic heart disease of knik coronary artery without angina pectoris; Translations: [Coronary atherosclerosis] Onset: 06-21-2010 06-21-2010 Chronic Disorders of lipid metabolism (17 sources) Hyperlipidemia; Translations: [Pure hypercholesterolemia] Onset: 06-21-2010 06-21-2010 Chronic Essential hypertension (15 sources) Hypertensive disorder; Translations: [Essential hypertension] Onset: 06-21-2010 06-21-2010 Chronic Genitourinary symptoms and ill-defined conditions (5 sources) Increased frequency of urination; Translations: [Frequency of micturition] 07-18-2022 Episodic Influenza (6 sources) Influenza due to Influenza A virus; Translations: [Influenza due to other identified influenza virus with other respiratory manifestations] 01-18-2022 Episodic Open wounds of extremities (5 sources) Disorder of lower extremity; Translations: [Unspecified open wound, left lower leg, initial encounter] 09-17-2021 Episodic Other and ill-defined heart disease (6 sources) Left atrial enlargement; 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] 01-31-2017 Chronic Other ear and sense organ disorders (3 sources) Impacted cerumen; Translations: [Impacted cerumen, unspecified ear] 02-24-2023 Episodic Other ear and sense organ disorders (2 sources) Impacted cerumen, unspecified ear; Translations: [Impacted cerumen] 02-24-2023 Episodic Other lower respiratory disease (20 sources) Dyspnea; Translations: [Dyspnea, unspecified] Onset: 06-21-2010 06-21-2010 Episodic Other lower respiratory disease (5 sources) Dyspnea on exertion; Translations: [Other forms of dyspnea] 01-11-2022 Episodic Other lower respiratory disease (4 sources) Other forms of dyspnea; Translations: [Other respiratory abnormalities] 01-11-2022 Episodic Other lower respiratory disease (2 sources) Shortness of breath; Translations: [Shortness of breath] 01-29-2024 Episodic Other upper respiratory infections (9 sources) Upper respiratory infection; Translations: [Acute upper respiratory infection, unspecified] 01-22-2021 Episodic Unclassified (2 sources) Long-term drug therapy; Translations: [Other care home (current) drug therapy] Onset: 06-21-2010 06-21-2010 Unclassified (1 source) Finding of body mass index; Translations: [Body mass index (BMI) 28.0-28.9, adult] Onset: 07-26-2013 07-26-2013 Unclassified (3 sources) Abrasion, left lower leg, initial encounter 09-06-2022 Past or Other Problems Problem Classification Problem Date Documented Da te Episodic/Chronic Coronary atherosclerosis and other heart disease (16 sources) Coronary angioplasty status; Translations: [Stented coronary artery] Onset: 04-24-2009 06-21-2010 Episodic Comment on above: IVUS to left main, P TCA/CAYDEN to RCA 05/03/09 @ [facility] Malaise and fatigue (6 sources) Fatigue; Translations: [Other fatigue] Onset: 07-24-2011 07-24-2011 Episodic Nonspecific chest pain (6 sources) Chest discomfort; Translations: [Other chest pain] Onset: 06-21-2010 06-21-2010 Episodic Other aftercare (4 sources) Other termite treater (current) drug therapy; Translations: [Other termite treater (current) drug therapy] Onset: 06-21-2010 06-21-2010 Episodic Other circulatory disease (6 sources) Cardiovascular stress test abnormal; Translations: [Abnormal result of other cardiovascular function study] Onset: 11-13-2015 11-13-2015 Episodic Other nutritional; endocrine; and metabolic disorders [...] Results Test Name Value Interpretation Reference Range Facility Bilirubin directOrdered By: Jennifer Byrnes on 06-19-2024 Bilirubin.direct [Mass/Vol] 0.36 mg/dL High 0.00-0.30 [facility] Bilirubin, totalOrdered By: Jennifer Byrnes on 06-19-2024 Bilirubin [Mass/Vol] 0.81 mg/dL 0.00-1.30 [facility] Calculated very low density lipoprotein (VLDL) cholesterol measurementOrdered By: Jennifer Byrnes on 06-19-2024 Calculated very low density lipoprotein (VLDL) cholesterol measurement 17 mg/dL 5-40 [facility] LDL calc ser/plasOrdered By: Jennifer Byrnes on 06-19-2024 Cholesterol in LDL [Mass/Vol] 72 mg/dL [facility] Comment on above: Jyvbtissxr=143-817 m g/dL & Higher Vqxu=093 mg/dL or greater Laboratory - Chemistry and C hemistry - challengeOrdered By: Jennifer Byrnes on 06-19-2024 AST [Catalytic activity/Vol] 26 U/L <38 [facility] Lipid Profileon 06-19-2024 CHOL:HDL 3.08 Normal [facility] Comment on above: Performed By: #### L 500.3400, L500.4100 #### [facility] [address] [place], [place], [id number] Cholesterol [Mass/Vol] 133 mg/dL Normal <=200 [facility] Comment on above: Result Comment: Chol esterol level, Desirable <200 mg/dL Borderline high cholesterol 200-239 mg/dL High cholesterol >=240 mg/dL Recommendations of the NCEP Adult Treatment Panel for the following risk-cutoff thresholds for the [place] population. Performed By: #### L 500.3400, L500.4100 #### [facility] [address] [place], [address] Cholesterol in HDL [Mass/Vol] 43 mg/dL Normal [facility] Comment on above: Result Comment: Deisi onal Cholesterol Education Program (NCEP) guidelines: <40 mg/dL: Low HDL-cholesterol (major risk factor for CHD) >= 60 mg/dL: High HDL-cholesterol (negative risk factor for CHD) HDL-cholesterol is affected by a number of factors, e.g. smoking, exercise, hormones, sex and age. Performed By: #### L 500.3400, L500.4100 #### [facility] [facility] [address] [place], [address] Cholesterol in LDL [Mass/Vol] 72 mg/dL Normal [facility] Comment on above: Result Comment: Bord eospcl=530-981 mg/dL Higher Lsdq=122 mg/dL or greater Performed By: #### L 500.3400, L500.4100 #### [facility] [address] [place], [address] Cholesterol in VLDL [Mass/Vol] 17 mg/dL Normal 5-40 [facility] Comment on above: Performed By: #### L 500.3400, L500.4100 #### [facility] [address] [place], [address] Triglyceride [Mass/Vol] 87 mg/dL Normal [facility] Comment on above: Result Comment: The drugs N-Acetylcysteine and Metamizole may falsely depress this assay. Normal range: <150 mg/dL Borderline High: 150-199 mg/dL High: 200-499 mg/dL Very High: >500 mg/dL Performed By: #### L 500.3400, L500.4100 #### [facility] [address] [place], [address] Liver Profileon 06-19-2024 Albumin [Mass/Vol] 4.2 g/dL Normal 3.4-4.8 [facility] Comment on above: Performed By: #### L 500.3400, L500.4100 #### [facility] [address] [place], [address] ALK PHOS 147 U/L High 40-129 [facility] Comment on above: Performed By: #### L 500.3400, L500.4100 #### [facility] [address] [place], [address] ALT [Catalytic activity/Vol] 22 U/L Normal <=46 [facility] Comment on above: Performed By: #### L 500.3400, L500.4100 #### [facility] [address] [place], [address] AST [Catalytic activity/Vol] 26 U/L Normal <=37 [facility] Comment on above: Performed By: #### L 500.3400, L500.4100 #### [facility] [address] [place], [address] Bilirubin [Mass/Vol] 0.81 mg/dL Normal 0.00-1.30 [facility] Comment on above: Performed By: #### L 500.3400, L500.4100 #### [facility] [address] [place], [address] Bilirubin.direct [Mass/Vol] 0.36 mg/dL High 0.00-0.30 [facility] Comment on above: Performed By: #### L 500.3400, L500.4100 #### [facility] [address] [place], [address] Globulin (S) [Mass/Vol] 3.1 g/dL Normal 2.2-4.2 [facility] Comment on above: Performed By: #### L 500.3400, L500.4100 #### [facility] [address] [place], [address] T PROT 7.3 g/dL Normal 5.9-8.4 [facility] Comment on above: Performed By: #### L 500.3400, L500.4100 #### [facility] [address] [place], [address] Screening total cholesterol/ high density lipoprotein (HDL) cholesterol ratioOrdered By: Jennifer Byrnes on 06-19-2024 Cholesterol.total/Cho lesterol in HDL [Mass ratio] 3.08 {ratio} [facility] Serum globulin measurementOr dered By: Jennifer Byrnes on 06-19-2024 Globulin (S) [Mass/Vol] 3.1 g/dL 2.2-4.2 [facility] Serum or plasma alanine hernandez otransferase (ALT) measurementOrdered By: Jennifer Byrnes on 06-19-2024 ALT [Catalytic activity/Vol] 22 U/L <47 [facility] Serum or plasma albumin michelle urement (mass/volume)Ordered By: Jennifer Byrnes on 06-19-2024 Albumin [Mass/Vol] 4.2 g/dL 3.4-4.8 [facility] Serum or plasma alkaline clyde sphatase measurementOrdered By: Jennifer Byrnes on 06-19-2024 ALP [Catalytic activity/Vol] 147 U/L High 40-129 [facility] Serum or plasma cholesterol in HDL measurement (mass/volume)Ordered By: Jennifer Byrnes on 06-19-2024 Cholesterol in HDL [Mass/Vol] 43 mg/dL >40 [facility] Comment on above: National Cholesterol Education Program (NCEP) guidelines:<40 mg/dL: Low HDL-cholesterol (major risk factor for CHD)>= 60 mg/dL: High HDL-cholesterol (negative risk factor for CHD)HDL-cholesterol is affected by a number of factors, e.g. smoking, exercise, hormones, sex and age. Serum or plasma cholesterol measurement (mass/volume)Ordered By: Jennifer Byrnes on 06-19-2024 Cholesterol [Mass/Vol] 133 mg/dL <201 [facility] Comment on above: Cholesterol level, D esirable <200 mg/dLBorderline high cholesterol 200-239 mg/dLHigh cholesterol >=240 mg/dLRecommendations of the NCEP Adult Treatment Panel for the following risk-cutoff thresholds for the [place] population. Total proteinOrdered By: Arnulfo Byrnes on 06-19-2024 Protein [Mass/Vol] 7.3 g/dL 5.9-8.4 [facility] Triglycerides measurementOrd ered By: Jennifer Byrnes on 06-19-2024 Triglyceride [Mass/Vol] 87 mg/dL <199 [facility] Comment on above: The drugs N-Acetylcy steine and Metamizole may falsely depress this assay. Normal range: <150 mg/dLBorderline High: 150-199 mg/dLHigh: 200-499 mg/dLVery High: >500 mg/dL Cardiology Visit Reporton Cardiology Visit Report [facility] [address] [place], [place] [address] OFFICE VISIT Date of Service: 06/18/24 MR#: [id number] Acct: [id number] Name: Teodoro SALAS Rep #: [id number] : 1940 Provider: JEAN shin Age/Sex: 83/M Location: [facility] [place] Status: Signed HPI HPI History of Present Illness Details: Teodoro Salas is an 83-year-old white male who presents today for outpatient cardiovascular follow-up visit. He has a history of underlying CAD with PCI to RCA in 2009, hyperlipidemia, hypertension. From a cardiac standpoint, the patient is doing well. He denies any palpitations, chest pain, pressure or heaviness. He does have SOB with exertion-he attributes this to COPD. He states that since starting pulmonary therapy, and Breztri this has improved. He denies Orthopnea, and PND. He does not have bleeding issues; no blood in urine, stool, or nosebleeds. He denies any decrease in energy level, myalgias, or claudication. He does not have edema, or sudden weight gain. He denies lightheadedness, dizziness, syncopal or near syncopal episodes, and headaches. 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 Is patient in pain?: No Allergies cefuroxime (From Ceftin) Adverse Reaction (Severe, Verified 06/18/24 11:38) Nausea Medications ???Medication ???Instructions ???Recorded ???Confirmed ???Type aspirin 81 mg tablet,delayed 81 mg PO 01/10/16 06/18/24 History release levalbuterol tartrate 45 2 inh inhalation Q6H 03/25/1805/26 History mcg/actuation aerosol inhaler buspirone 10 mg tablet 10 mg PO BID #30 tabs 05/27/23 Rx handicap placard #1 ea 05/27/23 06/18/24 Rx amlodipine 10 mg tablet 10 mg PO DAILY #90 tabs 10/13/23 0 06/18/24 Rx atorvastatin 80 mg tablet 80 mg PO QHS #90 tabs 10/13/23 Rx metoprolol succinate 25 mg 25 mg PO DAILY #90 tabs 10/13/23 0 06/18/24 Rx tablet,extended release 24 hr budesonide 160 mcg-glycopyr 9 2 inh inhalation BID 06/18/2405/26 History mcg-formot 4.8 mcg/actuation HFA inhaler (Breztri Aerosphere) nitroglycerin 0.4 mg sublingual 0.4 mg sublingual Q5-15M PRN Chest 06/18/24 06/18/24 Rx tablet Pain #25 tabs Ejection fraction %: 55 Have you fallen in the past year?: No PFSH Medical History Shortness of breath COPD exacerbation Acute bronchitis, unspecified URI (upper respiratory infection) Acute bronchitis, unspecified Essential hypertension Pure hypercholesterolemia Encounter for screening for lung cancer History of tobacco use Presence of stent in coronary artery ( 05/03/09) Atherosclerotic heart disease of knik coronary artery without angina pectoris Dyspnea COPD (chronic obstructive pulmonary disease) Atrial enlargement, left Surgical History Presence of coronary angioplasty implant and graft ( 05/03/09) Family History Father CAD (coronary artery disease) Hypertension HLD (hyperlipidemia) Myocardial infarction at age 56 Sister Hypertension HLD (hyperlipidemia) Brother HLD (hyperlipidemia) Hx of CABG three vessel CABG Social History Smoking Status: Former smoker quit date: 07/09/05 Tobacco: How many years used: 45 Electronic Cigarette Use: not used how long ago did patient quit smokin second hand exposure: Yes (father smoked in the house during childhood) quit status: has quit before alcohol intake: never substance use type: does not use what type of physical activity do you participate in: none seatbelt use: always do you feel safe at home: Yes ROS Const Const: Negative for fatigue, weakness, headache(s) or frequent falls Eyes Eyes: Negative for blurry vision ENT ENT: Negative for headache(s), dizziness or Nosebleed/epistaxis Cardio Chest Pain: No Palpitations: No Edema: None Muscle aches with walking: None Resp Respiratory: Positive for SOB with activity (copd) and SOB at rest; Negative for SOB orthopnea SOB lying down GI GI: Negative nausea, vomiting, heartburn, bright, red blood in stools or black,tarry stools : Negative for hematuria Neuro Neuro: Negative for dizziness, lightheadedness, near syncope, syncope, frequent falls, headache(s), weakness or blurry vision Endo Endo: Negative for fatigue Cardiology Exam Const Appearance: cooperati (more content not included)... Normal [facility] Urgent Care Visit Reporton 1 Urgent Care Visit Report [place] [facility] [address], [address] [place] [address] OFFICE VISIT Date of Service: 12/19/23 MR#: [id number] Acct: [id number] Name: CHERISE,M LIN Rep #: [id number] : 1940 Provider: MALU Humphries Age/Sex: 83/M Location: [facility] – [place] Status: Signed Intake Vital Signs 05/28/23 08:27 12/19/23 10:50 Height 5 ft 5 in Weight: 178 lb BMI 29.6 BP 138/79 H 136/82 H Blood Pressure Location Lt brachial Lt brachial Position Sitting Sitting Respiration 18 18 Pulse 63 79 Pulse Source Monitor Monitor Temp 97.4 F L Temp Source Oral Pulse Oximetry (%) 92 94 Oxygen Delivery Method room air Intake Visit Reasons: CHEST COLD Allergies cefuroxime (From Ceftin) Adverse Reaction (Severe, Verified 12/19/23 10:51) Nausea Have you fallen in the past year?: No [facility] Medical History Acute bronchitis, unspecified Acute bronchitis, unspecified Atherosclerotic heart disease of knik coronary artery without angina pectoris Atrial enlargement, left COPD (chronic obstructive pulmonary disease) COPD exacerbation Dyspnea Encounter for screening for lung cancer Essential hypertension History of tobacco use Presence of stent in coronary artery ( 05/03/09) Pure hypercholesterolemia Shortness of breath URI (upper respiratory infection) Surgical History Presence of coronary angioplasty implant and graft ( 05/03/09) Family History Father CAD (coronary artery disease) Hypertension HLD (hyperlipidemia) Myocardial infarction at age 56 Sister Hypertension HLD (hyperlipidemia) Brother HLD (hyperlipidemia) Hx of CABG three vessel CABG Social History Smoking Status: Former smoker quit date: 07/09/05 Tobacco: How many years used: 45 Electronic Cigarette Use: not used how long ago did patient quit smokin second hand exposure: Yes (father smoked in the house during childhood) quit status: has quit before alcohol intake: never substance use type: does not use what type of physical activity do you participate in: none seatbelt use: always do you feel safe at home: Yes HPI HPI Details: Teodoro SALAS, is a 83 M who presents to the office today for complaint of cough and congestion for the past week. Patient states having a history of COPD with feeling like this is an exacerbation. He denies fever, chills, sweats. No hemoptysis, shortness of breath or difficulty breathing. No loss of taste or smell. No other associated symptoms or alleviating/aggravating factors. ROS Const Constitutional: No other (As above) Exam Const General: cooperative and well developed HENWV Head: normal to inspection and atraumatic Ears: hearing grossly normal bilaterally Nose: nasal discharge clear Face and sinus: normal facial exam Mouth: oral mucosae normal Throat: abnormal tonsil bilaterally hypertrophy 1+ Resp Effort Inspection: normal respiratory effort and no audible wheezes Auscultation: Bilateral: Diminished Lung Sounds and Expiratory Wheezes Cardio Palpation: normal PMI Rate: regular rate Rhythm: regular rhythm Neuro General: patient alert and CN's II-XI intact bilaterally Psych Appearance: grossly normal Mental Status: mental status grossly normal Coding Level of Care Code Off vis,est,level 3 Diagnoses COPD exacerbation J44.1 Assessment and Plan Assessment and Plan (1) COPD exacerbation: Status: Chronic Plan: Doxycycline and prednisone as prescribed today. Encouraged to get plenty of rest, drink lots of clear liquids, and use Tylenol or Ibuprofen (unless contraindicated) for fever and comfort. Patient also educated on other symptomatic management techniques. To be seen in 7-10 days if no improvement; sooner if worsening of symptoms. Patient advised of potential red flags and when appropriate to report to the ED. Patient verbalized understanding and agreement with all the above. Medications: New doxycycline monohydrate 100 mg PO BID 10 days 20 caps 0RF prednisone Take 4 tabs once daily days 1-3 3 tabs once daily days 4-6 2 tabs once daily days 7-9 and 1 tab once daily days 10-12. 10 mg PO QDAY 12 days 30 tabs 0RF L25.9 - Unspecified contact dermatitis, unspecified cause Clinical Quality Measures Falls Risk Screening/Assistive Devices Have you fallen in the past year?: No 12/19/23 1117 Date Dav Ballard Signature: Date (if applicable) CC: Normal [facility] Office Visit Reporton 2023 Office Visit Report [facility] [address] [place] [address] OFFICE VISIT Date of Service: 12/10/23 MR#: [id number] Acct: [id number] Patient: Teodoro SALAS Rep #: [id number] : 1940 Provider: MALU Vasquez Age/Sex: 83/M Location: [facility] – [place] Status: Signed Intake Vital Signs 05/28/23 08:27 Height 5 ft 5 in Weight: 178 lb BMI 29.6 BP 138/79 H Blood Pressure Location Lt brachial Position Sitting Respiration 18 Pulse 63 Pulse Source Monitor Pulse Oximetry (%) 92 Intake Visit Reasons: FLU VACCINE Chief Complaint: need handicap placard Allergies cefuroxime (From Ceftin) Adverse Reaction (Severe, Verified 05/28/23 11:32) Nausea Have you fallen in the past year?: No [facility] Billing Sheet Vaccine Flu Vaccine (65 older): Yes Clinical Quality Measures Falls Risk Screening/Assistive Devices Have you fallen in the past year?: No 12/12/23 1244 Date Steven Ballard Signature: Date (if applicable) CC: Normal [facility] Basophil percentageOrdered B y: Remigio Fields on 06-09-2023 Hemoglobin (Bld) [Mass/Vol] 15.8 g/dL 13.0-16.5 [facility] WBC (Bld) [#/Vol] 11.0 10*3/uL 4.4-11.0 [facility] Determination of erythrocyte mean corpuscular volume (MCV)Ordered By: Remigio Fields on 06-09-2023 MCV (RBC) [Entitic vol] 96.6 fL 80-94 [facility] Erythrocyte distribution wid th ratioOrdered By: Remigio Fields on 06-09-2023 Erythrocyte distribution width (RBC) [Ratio] 13.5 % 11.6-14.6 [facility] Erythrocyte distribution wid th standard deviationOrdered By: Remigio Fields on 06-09-2023 Erythrocyte distribution width (RBC) [Entitic vol] 47.8 fL 35.1-43.9 [facility] Hematocrit Auto (Bld) [Volum e fraction]Ordered By: Remigio Fields on 06-09-2023 Hematocrit (Bld) [Volume fraction] 47.9 % 40-54 [facility] - Hematology and Cell countsOrdered By: Remigio Fields on 06-09-2023 MCH (RBC) [Entitic mass] 31.9 pg 27.0-32.0 [facility] MCHC (RBC) [Mass/Vol] 33.0 g/dL 32-36 [facility] Platelet mean volume (Bld) [Entitic vol] 9.0 fL 6.2-12.0 [facility] Platelets (Bld) [#/Vol] 271 10*3/uL 150-450 [facility] RBC Auto (Bld) [#/Vol]Ordere d By: Remigio Donnie on 06-09-2023 RBC (Bld) [#/Vol] 4.96 10*6/uL 4.6-6.2 [facility] Basophil percentageOrdered B y: Dr. Carson on 07-18-2022 Bilirubin [Mass/Vol] 0.90 mg/dL 0.20-1.00 [facility] Comment on above: For patients on eltr ombopag therapy, use of Dimension Raymond TBIL is not recommended. Chloride [Moles/Vol] 106 mmol/L 98-107 [facility] Cholesterol [Mass/Vol] 134 mg/dL <200 [facility] Comment on above: <200 mg/dL Desirable 200-240 mg/dL Borderline >240 mg/dL High Risk Glucose [Mass/Vol] 78 mg/dL 74-106 [facility] Potassium [Moles/Vol] 4.3 mmol/L 3.5-5.1 [facility] Protein [Mass/Vol] 7.2 g/dL 6.4-8.2 [facility] Sodium [Moles/Vol] 141 mmol/L 136-145 [facility] Triglyceride [Mass/Vol] 91 mg/dL <199 [facility] Comment on above: The drugs N-Acetylcy steine and Metamizole may falsely depress this assay.Serum Triglycerides Reference Interval Normal <150 mg/dL Borderline high 150 - 199 mg/dL High 200 - 499 mg/dL Very High > or = 500 mg/dL Laboratory - Chemistry and C hemistry - challengeOrdered By: Dr. Carson on 07-18-2022 ALP [Catalytic activity/Vol] 152 U/L 45-117 [facility] ALT [Catalytic activity/Vol] 35 U/L 16-61 [facility] CO2 [Moles/Vol] 27.0 mmol/L 21.0-32.0 [facility] Globulin (S) [Mass/Vol] 3.3 g/dL 2.2-4.2 [facility] Urea nitrogen/Creatinine [Mass ratio] 17.5 mg/mg 10-20 [facility] No Panel InformationOrdered By: Dr. Carson on 07-18-2022 Estimated GFR (MDRD) Amer 130 mL/min >60 [facility] Comment on above: GFR Calc Estimated GFR (MDRD) Non-Af Amer 108 mL/min >60 [facility] Comment on above: Non- GFR Calc Prostate Specific Antigen Total 1.40 ng/mL 0.0-4.0 [facility] Comment on above: This test was perfor med using the TPSA assay method for [employer] chemistry system. Values obtained with differentassay methods cannot be used interchangably.When changing PSA assays in the course of monitoring apatient, additional sequential testing should be carriedout to confirm baseline values. Serum or plasma albumin michelle urement (mass/volume)Ordered By: Dr. Carson on 07-18-2022 Albumin [Mass/Vol] 3.9 g/dL 3.2-5.0 [facility] Serum or plasma albumin/glob ulin mass ratioOrdered By: Dr. Carson on 07-18-2022 Albumin/Globulin [Mass ratio] 1.2 {ratio} 0.9-2.4 [facility] Serum or plasma calcium michelle urement (mass/volume)Ordered By: Dr. Carson on 07-18-2022 Calcium [Mass/Vol] 9.2 mg/dL 8.5-10.1 [facility] Serum or plasma cholesterol in HDL measurement (mass/volume)Ordered By: Dr. Carson on 07-18-2022 Cholesterol in HDL [Mass/Vol] 49 mg/dL >40 [facility] Comment on above: The drugs N-Acetylcy steine and Metamizole may falsely depress this assay. Reference Range HDL <40 mg/dL Low HDL Cholesterol HDL >or= 60 mg/dL High HDL Cholesterol Serum or plasma cholesterol in VLDL measurement (mass/volume)Ordered By: Dr. Carson on 07-18-2022 Cholesterol in VLDL [Mass/Vol] 18 mg/dL 5-40 [facility] Serum or plasma creatinine m easurement (mass/volume)Ordered By: Dr. Carson on 07-18-2022 Creatinine [Mass/Vol] 0.74 mg/dL 0.70-1.30 [facility] Comment on above: The validity of the calculated GFR & GFRAA in patients over 70 years has not been determined. Clinical correlation is essential. Serum or plasma low density lipoprotein (LDL) cholesterol measurement (mass/volume)Ordered By: Dr. Carson on 07-18-2022 Cholesterol in LDL [Mass/Vol] 67 mg/dL 0-130 [facility] Serum or plasma urea nitroge n measurement (mass/volume)Ordered By: Dr. Carson on 07-18-2022 Urea nitrogen [Mass/Vol] 13 mg/dL 7-18 [facility] Thin prep Papanicolaou smear with manual screeningOrdered By: Dr. Carson on 07-18-2022 Thin prep Papanicolaou smear with manual screening 25 U/L 15-37 [facility] Thin prep Papanicolaou smear with manual screening 8 5-15 [facility] Laboratory - Microbiology an d Antimicrobial susceptibilityon 01-18-2022 SARS-CoV-2 (COVID-19) RNA CAROL ANN+probe Ql (Unsp spec) Not detected [facility] No Panel Informationon 01-18 Influenza Types A,B Rapid (Clinic) Detected [facility] Basophil percentageon 2021 Bilirubin [Mass/Vol] 0.80 mg/dL 0.20-1.00 [facility] Work Phone: Comment on above: For patients on eltr ombopag therapy, use of Dimension Raymond TBIL is not recommended. Cholesterol [Mass/Vol] 120 mg/dL <200 [facility] Work Phone: Comment on above: <200 mg/dL Desirable 200-240 mg/dL Borderline >240 mg/dL High Risk Protein [Mass/Vol] 7.4 g/dL 6.4-8.2 [facility] Work Phone: Triglyceride [Mass/Vol] 76 mg/dL [facility] Work Phone: Comment on above: The drugs N-Acetylcy steine and Metamizole may falsely depress this assay.Serum Triglycerides Reference Interval Normal <150 mg/dL Borderline high 150 - 199 mg/dL High 200 - 499 mg/dL Very High > or = 500 mg/dL Direct bilirubinon Bilirubin.direct [Mass/Vol] 0.21 mg/dL 0.00-0.30 [facility] Work Phone: Laboratory - Chemistry and C hemistry - challengeon 06-15-2021 ALP [Catalytic activity/Vol] 145 U/L 45-117 [facility] Work Phone: [phone] ALT [Catalytic activity/Vol] 54 U/L 16-61 [facility] Work Phone: [phone] Globulin (S) [Mass/Vol] 3.6 g/dL 2.2-4.2 [facility] Work Phone: [phone] Serum or plasma albumin michelle urement (mass/volume)on 06-15-2021 Albumin [Mass/Vol] 3.8 g/dL 3.2-5.0 [facility] Work Phone: Serum or plasma cholesterol in HDL measurement (mass/volume)on 06-15-2021 Cholesterol in HDL [Mass/Vol] 44 mg/dL [facility] Work Phone: Comment on above: The drugs N-Acetylcy steine and Metamizole may falsely depress this assay. Reference Range HDL <40 mg/dL Low HDL Cholesterol HDL >or= 60 mg/dL High HDL Cholesterol Serum or plasma cholesterol in VLDL measurement (mass/volume)on 06-15-2021 Cholesterol in VLDL [Mass/Vol] 15 mg/dL 5-40 [facility] Work Phone: [phone] Serum or plasma low density lipoprotein (LDL) cholesterol measurement (mass/volume)on 06-15-2021 Cholesterol in LDL [Mass/Vol] 61 mg/dL 0-130 [facility] Work Phone: Thin prep Papanicolaou smear with manual screeningon 06-15-2021 Thin prep Papanicolaou smear with manual screening 34 U/L 15-37 [facility] Work Phone: Lab Report: Lipid Profileon 01-31-2017 Cholesterol 132 mg/dL Invalid Interpretation Code 200 [facility] Work Phone: [phone] HDL Cholesterol 45 mg/dL Invalid Interpretation Code [facility] Work Phone: [phone] LDL Cholesterol 70 mg/dL Invalid Interpretation Code 0-130 [facility] Work Phone: [phone] Triglyceride 86 mg/dL Invalid Interpretation Code [facility] Work Phone: [phone] very low density lipoproteins 17 mg/dL Invalid Interpretation Code 5-40 [facility] Work Phone: [phone] Lab Report: Liver Profileon 01-31-2017 Alanine aminotransferase (ALT) 31 U/L Invalid Interpretation Code 12-78 [facility] Work Phone: [phone] Albumin 3.7 g/dL Invalid Interpretation Code 3.4-5.0 [facility] Work Phone: [phone] Alkaline phosphatase (ALP) 150 U/L High 45-117 [facility] Work Phone: [phone] Aspartate aminotransferase (AST) 22 U/L Invalid Interpretation Code 15-37 [facility] Work Phone: [phone] Bilirubin (direct) 0.21 mg/dL Invalid Interpretation Code 0.00-0.30 [facility] Work Phone: [phone] Bilirubin (total) 1.00 mg/dL Invalid Interpretation Code 0.20-1.00 [facility] Work Phone: [phone] Globulin 3.3 g/dL Invalid Interpretation Code 2.2-4.2 [facility] Work Phone: [phone] Protein 7.0 g/dL Invalid Interpretation Code 6.4-8.2 [facility] Work Phone: [phone] Lab Report: Lipid Profileon 08-01-2016 Cholesterol 141 mg/dL Invalid Interpretation Code 200 [facility] Work Phone: [phone] HDL Cholesterol 47 mg/dL Invalid Interpretation Code [facility] Work Phone: [phone] LDL Cholesterol 79 mg/dL Invalid Interpretation Code 0-130 [facility] Work Phone: [phone] Triglyceride 75 mg/dL Invalid Interpretation Code [facility] Work Phone: [phone] very low density lipoproteins 15 mg/dL Invalid Interpretation Code 5-40 [facility] Work Phone: [phone] Lab Report: Liver Profileon 08-01-2016 Alanine aminotransferase (ALT) 36 U/L Invalid Interpretation Code 78 [facility] Work Phone: [phone] Albumin 3.8 g/dL Invalid Interpretation Code 3.4-5.0 [facility] Phone: [phone] Alkaline phosphatase (ALP) 152 U/L High 45-117 [facility] Work Phone: [phone] Aspartate aminotransferase (AST) 22 U/L Invalid Interpretation Code 15-37 [facility] Work Phone: [phone] Bilirubin (direct) 0.20 mg/dL Invalid Interpretation Code 0.00-0.30 [facility] Work Phone: [phone] Bilirubin (total) 0.80 mg/dL Invalid Interpretation Code 0.20-1.00 [facility] Phone: [phone] Globulin 3.7 g/dL High 2.3-3.5 [facility] Work Phone: [phone] Protein 7.5 g/dL Invalid Interpretation Code 6.4-8.2 [facility] Phone: [phone] Office Visiton 07-25-2016 Dietary management education, guidance, and counseling (procedure) yes Invalid Interpretation Code [facility] Phone: [phone] Documentation of current medications (procedure) Done Invalid Interpretation Code [facility] Phone: [phone] Lab Report: Lipid Profileon 02-01-2016 Cholesterol 144 mg/dL 200 [facility] Work Phone: [phone] HDL Cholesterol 46 mg/dL [facility] Phone: [phone] LDL Cholesterol 75 mg/dL 0-130 [facility] Work Phone: [phone] Triglyceride 116 mg/dL [facility] Phone: [phone] very low density lipoproteins 23 mg/dL 5-40 [facility] Phone: [phone] Lab Report: Liver Profileon 02-01-2016 Alanine aminotransferase (ALT) 37 U/L [facility] Work Phone: [phone] Albumin 3.8 g/dL 3.4-5.0 [facility] Work Phone: [phone] Alkaline phosphatase (ALP) 149 U/L High 45-117 [facility] Work Phone: [phone] ALP (Bld) [Catalytic activity/Vol] 149 U/L High 45-117 [facility] Work Phone: [phone] Aspartate aminotransferase (AST) 23 U/L 15-37 [facility] Work Phone: [phone] Bilirubin (direct) 0.23 mg/dL 0.00-0.30 [facility] Work Phone: [phone] Bilirubin (total) 0.80 mg/dL 0.20-1.00 [facility] Work Phone: [phone] Globulin 3.5 g/dL Invalid Interpretation Code 2.3-3.5 [facility] Work Phone: [phone] Globulin (S) [Mass/Vol] 3.5 g/dL 2.3-3.5 [facility] Work Phone: [phone] Protein 7.3 g/dL 6.4-8.2 [facility] Work Phone: [phone] Append: Referralon 6 Clinical consultation report (record artifact) [id number] Invalid Interpretation Code [facility] Phone: [phone] Office Visiton 01-22-2016 Dietary management education, guidance, and counseling (procedure) yes Invalid Interpretation Code [facility] Work Phone: [phone] Documentation of current medications (procedure) Done Invalid Interpretation Code [facility] Work Phone: [phone] Clinical Lists Update: Prelo community development coordinator 01-16-2016 Left ventricular Ejection fraction 65 % Invalid Interpretation Code [facility] Work Phone: [phone] Clinical Lists Update: Prelo community development coordinator 11-27-2015 BUN/Creatinine Ratio 19.7 mg/mg Invalid Interpretation Code [facility] Work Phone: [phone] Chloride 105 mmol/L Invalid Interpretation Code [facility] Work Phone: [phone] CO2 27 mmol/L Invalid Interpretation Code [facility] Work Phone: [phone] CO2 (BldV) [Partial pressure] 27 mmol/L [facility] Work Phone: [phone] Creatinine 0.71 mg/dL Invalid Interpretation Code [facility] Work Phone: [phone] Glucose 78 mg/dL Invalid Interpretation Code [facility] Work Phone: [phone] Glucose [Mass/Vol] 78 mg/dL Invalid Interpretation Code [facility] Work Phone: [phone] Hematocrit (Bld) [Volume fraction] 49.8 % [facility] Work Phone: [phone] Hematocrit (HCT) 49.8 % Invalid Interpretation Code [facility] Work Phone: [phone] Hemoglobin (HGB) 16.8 g/dL Invalid Interpretation Code [facility] Work Phone: [phone] Platelets 227 10*3/mm3 Invalid Interpretation Code [facility] Work Phone: [phone] Platelets (Bld) [#/Vol] 227 10*3/mm3 [facility] Work Phone: [phone] Potassium 4.3 mmol/L Invalid Interpretation Code [facility] Work Phone: [phone] Sodium 139 mmol/L Invalid Interpretation Code [facility] Work Phone: [phone] Urea nitrogen 14 mg/dL Invalid Interpretation Code [facility] Work Phone: [phone] WBC (Bld) [#/Vol] 8.3 10*3/uL [facility] Work Phone: [phone] WBC (Leukocytes) 8.3 10*3/uL Invalid Interpretation Code [facility] Work Phone: [phone] Office Visit: MMMon 02-02-20 15 Tobacco smoking status NHIS Tobacco smoking status NHIS Invalid Interpretation Code [facility] Work Phone: [phone] Tobacco smoking status NHIS Former smoker [facility] Work Phone: [phone] Tobacco use [facility] Former smoker Invalid Interpretation Code [facility] Work Phone: [phone] Replaced Document: [facility] E CG Observationson 02-01-2015 EKG QRS axis -10 deg Invalid Interpretation Code [facility] Phone: electrocardiogram interpretation Sinus Rhythm Low voltage in limb leads. -Prominent R(V1) and left axis -nonspecific -Seen with pulmonary disease -possible anterior fascicular block. -Nonspecific ST depression -Nondiagnostic. ABNORMAL Invalid Interpretation Code [facility] Phone: GE use only - for [employer] import when terms are not otherwise specified 405 ms Invalid Interpretation Code [facility] Phone: Interpretation Sinus Rhythm Low voltage in limb leads. -Prominent R(V1) and left axis -nonspecific -Seen with pulmonary disease -possible anterior fascicular block. -Nonspecific ST depression -Nondiagnostic. ABNORMAL Invalid Interpretation Code [facility] Phone: P [place] 45 deg Invalid Interpretation Code [facility] Phone: P wave axis, electrocardiogram 45 deg Invalid Interpretation Code [facility] Phone: CT Interval 124 ms Invalid Interpretation Code [facility] Phone: CT interval, electrocardiogram 124 ms Invalid Interpretation Code [facility] Phone: Pulse (Heart Rate) 62 /min Invalid Interpretation Code [facility] Phone: QRS axis, electrocardiogram -10 deg Invalid Interpretation Code [facility] Phone: QRS Duration 96 ms Invalid Interpretation Code [facility] Phone: QRS duration, electrocardiogram 96 ms Invalid Interpretation Code [facility] Phone: QT Interval new path ms Invalid Interpretation Code [facility] Phone: QT interval, electrocardiogram new path ms Invalid Interpretation Code [facility] Phone: QTc [place] 405 ms Invalid Interpretation Code [facility] Phone: T [place] 39 deg Invalid Interpretation Code [facility] Phone: T wave axis, electrocardiogram 39 deg Invalid Interpretation Code [facility] Phone: Office Visit: [facility] 01-27-20 14 cardiac risk group C Invalid Interpretation Code [facility] Work Phone: [phone] General cardiovascular disease 10Y risk [#] [place]D'Agostino N/A Invalid Interpretation Code [facility] Work Phone: [phone] Tobacco smoking status NHIS Never Invalid Interpretation Code [facility] Work Phone: [phone] Replaced Document: Jones E PEDRO Observationson 01-25-2013 Pulse (Heart Rate) 406 ms Invalid Interpretation Code [facility] Work Phone: [phone] Vital Signs Date Time Vital Sign Value Performing Clinician Faci lity 06-18-2024 07:32-0400 Body mass index (BMI) [Ratio] 27.9 kg/m2 Dr. Freddy Carson DO Work Phone: [facility] 06-18-2024 07:32-0400 Body weight 76.[address] Freddy Carson DO Work Phone: [facility] 06-18-2024 07:32-0400 Diastolic blood pressure 77 mm[Hg] Dr. Freddy Carson DO Work Phone: [facility] 06-18-2024 07:32-0400 Heart rate 60 /min Dr. Freddy Carson DO Work Phone: [facility] 06-18-2024 07:32-0400 Respiratory rate 18 /min Dr. Freddy Carson DO Work Phone: [facility] 06-18-2024 07:32-0400 SaO2% (BldA) [Mass fraction] 93 % Dr. Freddy Carson DO Work Phone: [facility] 06-18-2024 07:32-0400 Systolic blood pressure 122 mm[Hg] Dr. Freddy Carson DO Work Phone: [facility] 05-28-2023 08:27-0400 Body height 165.[address] Freddy Carson Work Phone: [facility] 05-28-2023 08:27-0400 Body mass index (BMI) [Ratio] 29.6 kg/m2 Dr. Freddy Carson Work Phone: [facility] 05-28-2023 08:27-0400 Body weight 80.[address] Freddy Carson Work Phone: [facility] 05-28-2023 08:27-0400 Diastolic blood pressure 79 mm[Hg] Dr. Freddy Carson Work Phone: [facility] 05-28-2023 08:27-0400 Heart rate 63 /min Dr. Freddy Carson Work Phone: [facility] 05-28-2023 08:27-0400 Respiratory rate 18 /min Dr. Freddy Carson Work Phone: [facility] 05-28-2023 08:27-0400 SaO2% (BldA) [Mass fraction] 92 % Dr. Freddy Carson Work Phone: [facility] 05-28-2023 08:27-0400 Systolic blood pressure 138 mm[Hg] Dr. Freddy Carson Work Phone: [facility] 05-27-2023 11:29-0400 Body mass index (BMI) [Ratio] 29.2 kg/m2 Dr. Freddy Carson Work Phone: [facility] 05-27-2023 11:29-0400 Body temperature 98.1 [degF] Dr. Freddy Carson Work Phone: [facility] 05-27-2023 11:29-0400 Body weight 79.[address] Freddy Carson Work Phone: [facility] 05-27-2023 11:29-0400 Diastolic blood pressure 78 mm[Hg] Dr. Freddy Carson Work Phone: [facility] 05-27-2023 11:29-0400 Heart rate 69 /min Dr. Freddy Carson Work Phone: [facility] 05-27-2023 11:29-0400 Respiratory rate 18 /min Dr. Freddy Carson Work Phone: [facility] 05-27-2023 11:29-0400 SaO2% (BldA) [Mass fraction] 92 % Dr. Freddy Carson Work Phone: [facility] 05-27-2023 11:29-0400 Systolic blood pressure 130 mm[Hg] Dr. Freddy Carson Work Phone: [facility] 03-24-2023 14:45-0500 Diastolic blood pressure 64 mm[Hg] Dr. Freddy Carson Work Phone: [facility] 03-24-2023 14:45-0500 Heart rate 68 /min Dr. Freddy Carson Work Phone: [facility] 03-24-2023 14:45-0500 Respiratory rate 16 /min Dr. Freddy Carson Work Phone: [facility] 03-24-2023 14:45-0500 Systolic blood pressure 112 mm[Hg] Dr. Freddy Carson Work Phone: [facility] 03-24-2023 14:10-0500 Body height 165.[address] Freddy Carson Work Phone: [facility] 03-24-2023 14:10-0500 Body mass index (BMI) [Ratio] 29.1 kg/m2 Dr. Freddy Carson Work Phone: [facility] 03-24-2023 14:10-0500 Body temperature 98.2 [degF] Dr. Freddy Carson Work Phone: [facility] 03-24-2023 14:10-0500 Body weight 79.[address] Freddy Carson Work Phone: [facility] 03-24-2023 14:10-0500 SaO2% (BldA) [Mass fraction] 92 % Dr. Freddy Carson Work Phone: [facility] 02-24-2023 10:31-0500 Body temperature 97.8 [degF] Dr. Freddy Carson Work Phone: [facility] 02-24-2023 10:31-0500 Diastolic blood pressure 70 mm[Hg] Dr. Freddy Carson Work Phone: [facility] 02-24-2023 10:31-0500 Heart rate 70 /min Dr. Freddy Carson Work Phone: [facility] 02-24-2023 10:31-0500 Respiratory rate 14 /min Dr. Freddy Carson Work Phone: [facility] 02-24-2023 10:31-0500 SaO2% (BldA) [Mass fraction] 93 % Dr. Freddy Carson Work Phone: [facility] 02-24-2023 10:31-0500 Systolic blood pressure 118 mm[Hg] Dr. Freddy Carson Work Phone: [facility] 02-16-2023 11:39-0500 Body temperature 98.2 [degF] Dr. Freddy Carson Work Phone: [facility] 02-16-2023 11:39-0500 Diastolic blood pressure 78 mm[Hg] Dr. Freddy Carson Work Phone: [facility] 02-16-2023 11:39-0500 Heart rate 82 /min Dr. Freddy Carson Work Phone: [facility] 02-16-2023 11:39-0500 Respiratory rate 16 /min Dr. Freddy Carson Work Phone: [facility] 02-16-2023 11:39-0500 SaO2% (BldA) [Mass fraction] 94 % Dr. Freddy Carson Work Phone: [facility] 02-16-2023 11:39-0500 Systolic blood pressure 132 mm[Hg] Dr. Freddy Carson Work Phone: [facility] 12-22-2022 10:46-0400 Body mass index (BMI) [Ratio] 28.4 kg/m2 Dr. Freddy Carson Work Phone: [facility] 12-22-2022 10:46-0400 Body temperature 98.2 [degF] Dr. Freddy Carson Work Phone: [facility] 12-22-2022 10:46-0400 Body weight 79.[address] Freddy Carson Work Phone: [facility] 12-22-2022 10:46-0400 Diastolic blood pressure 81 mm[Hg] Dr. Freddy Carson Work Phone: [facility] 12-22-2022 10:46-0400 Heart rate 63 /min Dr. Freddy Carson Work Phone: [facility] 12-22-2022 10:46-0400 Respiratory rate 20 /min Dr. Freddy Carson Work Phone: [facility] 12-22-2022 10:46-0400 SaO2% (BldA) [Mass fraction] 89 % Dr. Freddy Carson Work Phone: [facility] 12-22-2022 10:46-0400 Systolic blood pressure 135 mm[Hg] Dr. Freddy Carson Work Phone: [facility] 07-18-2022 11:42-0400 Body height 167.[address] Freddy Carson Work Phone: [facility] 07-18-2022 11:42-0400 Body mass index (BMI) [Ratio] 29.5 kg/m2 Dr. Freddy Carson Work Phone: [facility] 07-18-2022 11:42-0400 Body temperature 97.6 [degF] Dr. Freddy Carson Work Phone: [facility] 07-18-2022 11:42-0400 Body weight [address] Freddy Carson Work Phone: [facility] 07-18-2022 11:42-0400 Diastolic blood pressure 66 mm[Hg] Dr. Freddy Carson Work Phone: [facility] 07-18-2022 11:42-0400 Heart rate 59 /min Dr. Freddy Carson Work Phone: [facility] 07-18-2022 11:42-0400 Respiratory rate 14 /min Dr. Freddy Carson Work Phone: [facility] 07-18-2022 11:42-0400 SaO2% (BldA) [Mass fraction] 95 % Dr. Freddy Carson Work Phone: [facility] 07-18-2022 11:42-0400 Systolic blood pressure 128 mm[Hg] Dr. Freddy Carson Work Phone: [facility] 01-24-2022 12:17-0500 Body temperature 97.9 [degF] Dr. Freddy Carson Work Phone: [facility] 01-24-2022 12:17-0500 Diastolic blood pressure 70 mm[Hg] Dr. Freddy Carson Work Phone: [facility] 01-24-2022 12:17-0500 Heart rate 88 /min Dr. Freddy Carson Work Phone: [facility] 01-24-2022 12:17-0500 Respiratory rate 18 /min Dr. Freddy Carson Work Phone: [facility] 01-24-2022 12:17-0500 SaO2% (BldA) [Mass fraction] 93 % Dr. Freddy Carson Work Phone: [facility] 01-24-2022 12:17-0500 Systolic blood pressure 120 mm[Hg] Dr. Freddy Carson Work Phone: [facility] 01-18-2022 10:49-0500 Body temperature 98.2 [degF] Dr. Freddy Carson Work Phone: [facility] 01-18-2022 10:49-0500 Diastolic blood pressure 70 mm[Hg] Dr. Freddy Carson Work Phone: [facility] 01-18-2022 10:49-0500 Heart rate 106 /min Dr. Freddy Carson Work Phone: [facility] 01-18-2022 10:49-0500 Respiratory rate 18 /min Dr. Freddy Carson Work Phone: [facility] 01-18-2022 10:49-0500 SaO2% (BldA) [Mass fraction] 94 % Dr. Freddy Carson Work Phone: [facility] 01-18-2022 10:49-0500 Systolic blood pressure 134 mm[Hg] Dr. Freddy Carson Work Phone: [facility] 01-11-2022 11:07-0500 Body height 167.[address] Freddy Carson Work Phone: [facility] 01-11-2022 11:07-0500 Body mass index (BMI) [Ratio] 29.5 kg/m2 Dr. Freddy Carson Work Phone: [facility] 01-11-2022 11:07-0500 Body weight 83.[address] Freddy Carson Work Phone: [facility] 01-11-2022 11:07-0500 Diastolic blood pressure 60 mm[Hg] Dr. Freddy Carson Work Phone: [facility] 01-11-2022 11:07-0500 Heart rate 60 /min Dr. Freddy Carson Work Phone: [facility] 01-11-2022 11:07-0500 Respiratory rate 18 /min Dr. Freddy Carson Work Phone: [facility] 01-11-2022 11:07-0500 Systolic blood pressure 124 mm[Hg] Dr. Freddy Carson Work Phone: [facility] 06-04-2021 16:10-0400 SaO2% (BldA) [Mass fraction] 95 % Dr. Freddy Carson Work Phone: [facility] Work Phone: 06-04-2021 15:52-0400 Body temperature 98.4 [degF] Dr. Freddy Carson Work Phone: [facility] Work Phone: 06-04-2021 15:52-0400 Diastolic blood pressure 72 mm[Hg] Dr. Freddy Carson Work Phone: [facility] Work Phone: 06-04-2021 15:52-0400 Heart rate 80 /min Dr. Freddy Carson Work Phone: [facility] Work Phone: 06-04-2021 15:52-0400 Respiratory rate 18 /min Dr. Freddy Carson Work Phone: [facility] Work Phone: 06-04-2021 15:52-0400 Systolic blood pressure 146 mm[Hg] Dr. Freddy Carson Work Phone: [facility] Work Phone: 07-25-2016 13:54-0400 BMI (Body Mass Index) 28.35 kg/m2 [facility] Work Phone: 07-25-2016 13:54-0400 Body weight 82.1 kg Prema Macedo [facility] Work Phone: 07-25-2016 13:54-0400 BP Diastolic 60 mm[Hg] Prema Macedo [facility] Work Phone: 07-25-2016 13:54-0400 BP Systolic 106 mm[Hg] Prema Macedo [facility] Work Phone: 07-25-2016 13:54-0400 Pulse (Heart Rate) 60 /min [facility] Work Phone: 07-25-2016 13:54-0400 Respiratory Rate 16 /min [facility] Work Phone: 07-25-2016 13:54-0400 Weight 82.1 kg [facility] Work Phone: 01-22-2016 11:15-0500 BMI (Body Mass Index) 28.5 kg/m2 Andre [facility] Work Phone: 01-22-2016 11:15-0500 BP Diastolic 62 mm[Hg] Harmora Ramos [facility] Work Phone: 01-22-2016 11:15-0500 BP Systolic 122 mm[Hg] Andre Emb[employer]ded [employer] [facility] Work Phone: 01-22-2016 11:15-0500 BSA (Body Surface Area) 1.94 m2 Harmora DeFinis [facility] Work Phone: 01-22-2016 11:15-0500 Pulse (Heart Rate) 68 /min Harumi Sentr[employer] [facility] Work Phone: 01-22-2016 11:15-0500 Respiratory Rate 16 /min Harmora [facility] [facility] Work Phone: 01-22-2016 11:15-0500 Weight 82.56 kg Andre [facility] Work Phone: 02-01-2015 10:39-0500 Heart rate 62 /min Prema Macedo [facility] Work Phone: 01-25-2013 13:22-0500 Heart rate 406 ms Prema Macedo [facility] Work Phone: 07-24-2011 10:24-0400 Height 170.18 cm [facility] Work Phone: Encounters Encounter Date Encounter Type Care Provider Facility Start: 07-27-2024 ambulatory Freddy Carson Facilit y:[facility] Start: 07-22-2024 End: 07-24-[address] Freddy Carson DO Work Phone: [facility] Work Phone: Start: 07-22-2024 End: 07-24-[address] Remigio Fields MD -Pulmonary Rehab Work Phone: Start: 06-22-2024 End: 06-23-2024 ambulatory Freddy Carson Facility:[facility] Start: 06-22-2024 End: 06-23-[address] Remigio Fields MD -Pulmonary Rehab Work Phone: Start: 06-19-2024 End: 06-19-2024 Patient encounter procedure Jennifer Byrnes [employer]EN[employer]ER[employer] TECHNICIAN-C -Laboratory Work Phone: Start: 06-18-2024 End: 06-18-2024 Patient encounter procedure Jennifer Byrnes CENTRAL STERILE TECHNICIAN-C -[facility] Work Phone: Start: 06-18-2024 End: 06-19-2024 ambulatory Jennifer Byrnes Facility:[facility] Start: 05-27-2024 ambulatory Freddy Carson Facilit y:[facility] Start: 12-19-2023 End: 12-19-2023 ambulatory Freddy Carson Facility:[facility] Start: 12-10-2023 End: 12-10-2023 ambulatory Freddy Carson Facility:[facility] Start: 06-09-2023 End: 06-09-[address] Freddy Carson Work Phone: [facility] Work Phone: Start: 06-09-2023 End: 06-09-[address] [facility] Start: 05-28-2023 End: 05-28-[address] Freddy Carson Work Phone: [facility] Work Phone: Start: 05-27-2023 End: 05-27-[address] Freddy Carson Work Phone: [facility] Work Phone: Start: 03-24-2023 End: 03-24-[address] Freddy Carson Work Phone: [facility] Work Phone: Start: 03-24-2023 End: 03-24-[address] Freddy Carson Work Phone: [facility] Work Phone: Start: 02-24-2023 End: 02-24-[address] Freddy Carson Work Phone: [facility] Work Phone: Start: 02-16-2023 End: 02-16-[address] Freddy Carson Work Phone: [facility] Work Phone: Start: 12-22-2022 End: 12-22-[address] Freddy Carson Work Phone: [facility] Work Phone: Start: 07-18-2022 End: 07-18-[address] Freddy Carson Work Phone: [facility] Work Phone: Start: 07-18-2022 End: 07-18-[address] Freddy Carson Work Phone: [facility] Start: 02-28-2022 Non-patient / Non-visit Dr. Damian Work Phone: [facility] Start: 02-28-2022 End: 02-28-[address] Freddy Carson Work Phone: [facility] Work Phone: Start: 02-28-2022 End: 02-28-[address] [facility]Crson [facility] Start: 01-24-2022 End: 01-24-[address] Freddy Carson Work Phone: [facility] Start: 01-18-2022 End: 01-18-[address] Freddy Carson Work Phone: [facility] Start: 01-11-2022 End: 01-11-[address] Freddy Carson Work Phone: [facility] Start: 12-19-2021 End: 12-19-[address] Freddy Carson Work Phone: [facility] Start: 06-15-2021 End: 06-15-[address] Freddy Carson Work Phone: [facility]-Laboratory Start: 06-04-2021 End: 06-04-[address] Freddy Carson Work Phone: [facility] Start: 02-27-2021 End: 03-26-[address] Freddy Carson Work Phone: [facility]-Pulmonary Rehab Procedures Date Procedure Procedure Detail Performing Clinician Start: 03-24-2023 Plain chest X-ray Dr. Pee Carson Work Phone: Start: 02-28-2022 Cardiovascular stres s test using pharmacologic stress agent Dr. Freddy Carson Work Phone: Start: 01-24-2022 Plain chest X-ray Dr. Pee Carson Work Phone: Start: 06-04-2021 Plain chest X-ray Dr. Pee Carson Work Phone: Start: 01-31-2017 End: 01-31-2017 *Hepatic [...] MD Start: 11-13-2015 End: 11-14-2015 Referral to statistical technician Dedrick marie MD Start: 11-13-2015 End: 11-14-2015 Referral to statistical technician Dedrick marie MD Start: 10-04-2015 End: 01-22-2017 Echocardiography Dedrick Ureña MD Start: 10-04-2015 End: 10-04-2015 Follow Up Appt 6 months Dedrick Ureña MD Start: 10-04-2015 End: 10-04-2015 MATIAS Ureña MD Start: 10-04-2015 End: 01-22-2017 Nuclear [...] 12 lds w/i&r Dedrick Ureña MD Start: 07-26-2013 End: 01-11-2014 Echocardiography [...] [facility] Minerva Spence PA-C Work Phone: Start: 07-22-2012 [...] End: 07-22-2012 MMM Dedrick Ureña MD Start: 07-22-2012 End: 11-11-2012 [...] Author Start: 01-31-2017 End: 01-31-2017 Appointment Appointment [facility] Work Phone: Start: 01-31-2017 End: 01-31-2017 *Hepatic Function Panel *Hepatic Function Panel [facility] Work Phone: Start: 01-31-2017 End: 01-31-2017 Lipid panel [AGGREGATE] *Lipid Profile CC PCP [facility] Work Phone: Start: 01-31-2017 End: 08-08-2016 *Hepatic Function Panel *Hepatic Function Panel [facility] Work Phone: Start: 01-31-2017 End: 08-08-2016 Lipid panel [AGGREGATE] *Lipid Profile CC PCP [facility] Work Phone: Start: 08-01-2016 End: 08-01-2016 *Hepatic Function Panel *Hepatic Function Panel [facility] Work Phone: Start: 08-01-2016 End: 08-01-2016 Lipid panel [AGGREGATE] *Lipid Profile CC PCP [facility] Work Phone: Start: 08-01-2016 End: 08-01-2016 *Hepatic Function Panel *Hepatic Function Panel [facility] Work Phone: Start: 08-01-2016 End: 08-01-2016 Lipid panel [AGGREGATE] *Lipid Profile CC PCP [facility] Work Phone: Start: 07-25-2016 End: 01-22-2017 Follow Up Appt 6 months Follow Up Appt 6 months [facility] Work Phone: Start: 07-25-2016 End: 01-22-2017 MMM MMM [facility] Work Phone: Start: 07-25-2016 End: 07-25-2016 Appointment Appointment [facility] Work Phone: Start: 07-25-2016 End: 07-25-2016 Follow Up Appt 6 months Follow Up Appt 6 months [facility] Work Phone: Start: 07-25-2016 End: 07-25-2016 MMM MMM [facility] Work Phone: Start: 02-02-2016 End: 02-02-2016 *Hepatic Function Panel *Hepatic Function Panel [facility] Work Phone: Start: 02-02-2016 End: 02-02-2016 Lipid panel [AGGREGATE] *Lipid Profile CC PCP [facility] Work Phone: Start: 02-02-2016 End: 02-02-2016 *Hepatic Function Panel *Hepatic Function Panel [facility] Work Phone: Start: 02-02-2016 End: 02-02-2016 Lipid panel [AGGREGATE] *Lipid Profile CC PCP [facility] Work Phone: Start: 01-22-2016 End: 01-22-2016 Follow Up Appt 6 months Follow Up Appt 6 months [facility] Work Phone: Start: 01-22-2016 End: 01-22-2016 MMM MMM [facility] Work Phone: Start: 01-22-2016 End: 01-22-2016 Follow Up Appt 6 months Follow Up Appt 6 months [facility] Work Phone: Start: 01-22-2016 End: 01-22-2016 MMM MMM [facility] Work Phone: Start: 11-13-2015 End: 11-13-2015 Cardiac Referral Cardiac Referral Alfonso Melendez, [address], [address], [place], [address] [facility] Work Phone: Start: 11-13-2015 End: 11-13-2015 Cardiac Referral Cardiac Referral Alfonso Melendez, [address], [address], [place], [address] [facility] Work Phone: Start: 10-04-2015 End: 10-04-2015 Echocardiography Echocardiogram (complete) [facility] Work Phone: Start: 10-04-2015 End: 10-04-2015 Follow Up Appt 6 months Follow Up Appt 6 months [facility] Work Phone: Start: 10-04-2015 End: 10-04-2015 MMM MMM [facility] Work Phone: Start: 10-04-2015 End: 10-04-2015 Nuclear stress test -exercise Nuclear stress test -exercise [facility] Work Phone: Start: 10-04-2015 End: 10-04-2015 Echocardiography Echocardiogram (complete) [facility] Work Phone: Start: 10-04-2015 End: 10-04-2015 Follow Up Appt 6 months Follow Up Appt 6 months [facility] Work Phone: Start: 10-04-2015 End: 10-04-2015 MMM MMM [facility] Work Phone: Start: 10-04-2015 End: 10-04-2015 Nuclear stress test -exercise Nuclear stress test -exercise [facility] Work Phone: Start: 08-03-2015 End: 08-03-2015 *Hepatic Function Panel *Hepatic Function Panel [facility] Work Phone: Start: 08-03-2015 End: 08-03-2015 Lipid panel [AGGREGATE] *Lipid Profile CC PCP [facility] Work Phone: Start: 08-03-2015 End: 08-03-2015 *Hepatic Function Panel *Hepatic Function Panel [facility] Work Phone: Start: 08-03-2015 End: 08-03-2015 Lipid panel [AGGREGATE] *Lipid Profile CC PCP [facility] Work Phone: Start: 02-03-2015 End: 02-01-2015 Lipid panel [AGGREGATE] *Lipid Profile CC PCP [facility] Work Phone: Start: 02-03-2015 End: 02-01-2015 Lipid panel [AGGREGATE] *Lipid Profile CC PCP [facility] Work Phone: Start: 02-01-2015 End: 02-01-2015 Ecg routine ecg w/least 12 lds w/i&r EKG (In office) [facility] Work Phone: Start: 02-01-2015 End: 02-01-2015 Follow Up Appt 6 months Follow Up Appt 6 months [facility] Phone: Start: 02-01-2015 End: 02-01-2015 PFM PFM [facility] Work Phone: Start: 02-01-2015 End: 02-01-2015 Electrocardiogram, complete EKG (In office) [facility] Work Phone: Start: 02-01-2015 End: 02-01-2015 Follow Up Appt 6 months Follow Up Appt 6 months [facility] Phone: Start: 02-01-2015 End: 02-01-2015 PFM PFM [facility] Work Phone: Start: 01-24-2015 End: 02-02-2015 *Hepatic Function Panel *Hepatic Function Panel [facility] Work Phone: Start: 01-24-2015 End: 02-02-2015 *Hepatic Function Panel *Hepatic Function Panel [facility] Work Phone: Start: 09-15-2014 End: 01-24-2015 *Hepatic Function Panel *Hepatic Function Panel [facility] Work Phone: Start: 09-15-2014 End: 01-24-2015 *Hepatic Function Panel *Hepatic Function Panel [facility] Work Phone: Start: 08-03-2014 End: 08-03-2014 *Hepatic Function Panel *Hepatic Function Panel [facility] Work Phone: Start: 08-03-2014 End: 08-03-2014 Lipid panel [AGGREGATE] *Lipid Profile CC PCP [facility] Work Phone: Start: 08-03-2014 End: 08-03-2014 *Hepatic Function Panel *Hepatic Function Panel [facility] Work Phone: Start: 08-03-2014 End: 08-03-2014 Lipid panel [AGGREGATE] *Lipid Profile CC PCP [facility] Work Phone: Start: 08-01-2014 End: 08-04-2014 *Hepatic Function Panel *Hepatic Function Panel [facility] Work Phone: Start: 08-01-2014 End: 08-01-2014 Follow Up Appt 6 months Follow Up Appt 6 months [facility] Work Phone: Start: 08-01-2014 End: 08-04-2014 Lipid panel [AGGREGATE] *Lipid Profile CC PCP [facility] Work Phone: Start: 08-01-2014 End: 08-01-2014 MMM MMM [facility] Work Phone: Start: 08-01-2014 End: 08-04-2014 *Hepatic Function Panel *Hepatic Function Panel [facility] Work Phone: Start: 08-01-2014 End: 08-01-2014 Follow Up Appt 6 months Follow Up Appt 6 months [facility] Work Phone: Start: 08-01-2014 End: 08-04-2014 Lipid panel [AGGREGATE] *Lipid Profile CC PCP [facility] Work Phone: Start: 08-01-2014 End: 08-01-2014 MMM MMM [facility] Work Phone: Start: 01-26-2014 End: 01-28-2014 *Hepatic Function Panel *Hepatic Function Panel [facility] Work Phone: Start: 01-26-2014 End: 01-24-2015 Follow Up Appt 6 months Follow Up Appt 6 months [facility] Work Phone: Start: 01-26-2014 End: 01-28-2014 Lipid panel [AGGREGATE] *Lipid Profile CC PCP [facility] Work Phone: Start: 01-26-2014 End: 01-24-2015 PFM PFM [facility] Work Phone: Start: 01-26-2014 End: 01-28-2014 *Hepatic Function Panel *Hepatic Function Panel [facility] Work Phone: Start: 01-26-2014 End: 01-24-2015 Follow Up Appt 6 months Follow Up Appt 6 months [facility] Work Phone: Start: 01-26-2014 End: 01-28-2014 Lipid panel [AGGREGATE] *Lipid Profile CC PCP [facility] Work Phone: Start: 01-26-2014 End: 01-24-2015 PFM PFM [facility] Work Phone: Start: 10-25-2013 End: 01-28-2014 *Hepatic Function Panel *Hepatic Function Panel [facility] Work Phone: Start: 10-25-2013 End: 01-28-2014 Lipid panel [AGGREGATE] *Lipid Profile CC PCP [facility] Work Phone: Start: 10-25-2013 End: 01-28-2014 *Hepatic Function Panel *Hepatic Function Panel [facility] Work Phone: Start: 10-25-2013 End: 01-28-2014 Lipid panel [AGGREGATE] *Lipid Profile CC PCP [facility] Phone: Start: 07-26-2013 End: 07-26-2013 Ecg routine ecg w/least 12 lds w/i&r EKG (In office) [facility] Phone: Start: 07-26-2013 End: 07-26-2013 Echocardiography Echocardiogram (complete) [facility] Phone: Start: 07-26-2013 End: 07-26-2013 Follow Up Appt 6 months Follow Up Appt 6 months [facility] Phone: Start: 07-26-2013 End: 07-26-2013 MMM MMM [facility] Phone: Start: 07-26-2013 End: 07-26-2013 Nuclear stress test -exercise Nuclear stress test -exercise [facility] Work Phone: Start: 07-26-2013 End: 07-26-2013 Echocardiography Echocardiogram (complete) [facility] Phone: Start: 07-26-2013 End: 07-26-2013 Electrocardiogram, complete EKG (In office) [facility] Phone: Start: 07-26-2013 End: 07-26-2013 Follow Up Appt 6 months Follow Up Appt 6 months [facility] Work Phone: Start: 07-26-2013 End: 07-26-2013 MMM MMM [facility] Phone: Start: 07-26-2013 End: 07-26-2013 Nuclear stress test -exercise Nuclear stress test -exercise [facility] Phone: Start: 04-24-2013 End: 05-03-2013 *Hepatic Function Panel *Hepatic Function Panel [facility] Phone: Start: 04-24-2013 End: 05-03-2013 Lipid panel [AGGREGATE] *Lipid Profile CC PCP [facility] Work Phone: Start: 04-24-2013 End: 05-03-2013 *Hepatic Function Panel *Hepatic Function Panel [facility] [facility] Work Phone: Start: 04-24-2013 End: 05-03-2013 Lipid panel [AGGREGATE] *Lipid Profile CC PCP [facility] [facility] Work Phone: Start: 01-25-2013 End: 01-25-2013 Ecg routine ecg w/least 12 lds w/i&r EKG (In office) [facility] [employer] Work Phone: Start: 01-25-2013 End: 01-25-2013 Follow Up Appt 6 months Follow Up Appt 6 months [facility] [employer] Work Phone: Start: 01-25-2013 End: 01-25-2013 PFM PFM [facility] [employer] Work Phone: Start: 01-25-2013 End: 01-25-2013 Electrocardiogram, complete EKG (In office) [facility] Work Phone: Start: 01-25-2013 End: 01-25-2013 Follow Up Appt 6 months Follow Up Appt 6 months [facility] [employer] Work Phone: Start: 01-25-2013 End: 01-25-2013 PFM PFM [facility] [employer] Work Phone: Start: 07-22-2012 End: 11-11-2012 *Hepatic Function Panel *Hepatic Function Panel [facility] [employer] Work Phone: Start: 07-22-2012 End: 07-22-2012 Follow Up Appt 6 months Follow Up Appt 6 months [facility] Work Phone: Start: 07-22-2012 End: 11-11-2012 Lipid panel [AGGREGATE] *Lipid Profile CC PCP [facility] [employer] Work Phone: Start: 07-22-2012 End: 07-22-2012 MMM MMM [facility] [employer] Work Phone: Start: 07-22-2012 End: 11-11-2012 *Hepatic Function Panel *Hepatic Function Panel [facility] Work Phone: Start: 07-22-2012 End: 07-22-2012 Follow Up Appt 6 months Follow Up Appt 6 months [facility] Work Phone: Start: 07-22-2012 End: 11-11-2012 Lipid panel [AGGREGATE] *Lipid Profile CC PCP [facility] [employer] Work Phone: Start: 07-22-2012 End: 07-22-2012 MMM MMM [facility] [employer] Work Phone: Start: 04-24-2012 End: 05-07-2012 *Hepatic Function Panel *Hepatic Function Panel [facility] Work Phone: Start: 04-24-2012 End: 05-07-2012 Lipid panel [AGGREGATE] *Lipid Profile [facility] Work Phone: Start: 04-24-2012 End: 05-07-2012 *Hepatic Function Panel *Hepatic Function Panel [facility] Work Phone: Start: 04-24-2012 End: 05-07-2012 Lipid panel [AGGREGATE] *Lipid Profile [facility] [employer] Phone: Start: 01-13-2012 End: 01-13-2012 Ecg routine ecg w/least 12 lds w/i&r EKG (In office) [facility] [employer] Phone: Start: 01-13-2012 End: 07-22-2012 Follow Up Appt 6 months Follow Up Appt 6 months [facility] Work Phone: Start: 01-13-2012 End: 01-13-2012 Nuclear stress test -exercise Nuclear stress test -exercise [facility] [employer] Work Phone: Start: 01-13-2012 End: 01-13-2012 Electrocardiogram, complete EKG (In office) [facility] Work Phone: Start: 01-13-2012 End: 07-22-2012 Follow Up Appt 6 months Follow Up Appt 6 months [facility] [employer] Work Phone: Start: 01-13-2012 End: 01-13-2012 Nuclear stress test -exercise Nuclear stress test -exercise [facility] [employer] Work Phone: Start: 11-01-2011 End: 11-06-2011 *Hepatic Function Panel *Hepatic Function Panel [facility] [employer] Work Phone: Start: 11-01-2011 End: 11-06-2011 Lipid panel [AGGREGATE] *Lipid Profile [facility] [employer] Work Phone: Start: 11-01-2011 End: 11-06-2011 *Hepatic Function Panel *Hepatic Function Panel [facility] [employer] Work Phone: Start: 11-01-2011 End: 11-06-2011 Lipid panel [AGGREGATE] *Lipid Profile [facility] [employer] Work Phone: Start: 09-06-2011 End: 09-20-2011 *Hepatic Function Panel *Hepatic Function Panel [facility] [employer] Work Phone: Start: 09-06-2011 End: 09-20-2011 Lipid panel [AGGREGATE] *Lipid Profile [facility] [employer] Work Phone: Start: 09-06-2011 End: 09-20-2011 *Hepatic Function Panel *Hepatic Function Panel [facility] [employer] Work Phone: Start: 09-06-2011 End: 09-20-2011 Lipid panel [AGGREGATE] *Lipid Profile [facility] [employer] Work Phone: Start: 07-24-2011 End: 07-24-2011 Ecg routine ecg w/least 12 lds w/i&r EKG (In office) [facility] Work Phone: Start: 07-24-2011 End: 07-24-2011 Follow Up Appt 6 months Follow Up Appt 6 months [facility] [employer] Work Phone: Start: 07-24-2011 End: 07-24-2011 Electrocardiogram, complete EKG (In office) [facility] Work Phone: Start: 07-24-2011 End: 07-24-2011 Follow Up Appt 6 months Follow Up Appt 6 months [facility] [facility] Work Phone: Patient Education [facility] Work Phone: Immunizations Immunization Date Immunization Notes Care Provider Fa brennenty 12-19-2021 influenza, injectabl e, quadrivalent, preservative free Dr. Freddy Carson Work Phone: [facility] 12-19-2021 influenza, seasonal, injectable Dr. Freddy Carson Work Phone: [facility] Payers Date Payer Category Payer Self-pay [id number] 2023 Medicare [id number] Unknown [id number] [id number] Unknown [id number] [id number] [id number] Unknown [id number] 2.16.8 [id number] Unknown [id number] 2.16.8 [id number] Unknown [id number] 2.16.8 [id number] Unknown [id number] [id number] [id number] Unknown [id number] [id number] [id number] Unknown [id number] 2.16.8 [id number] Social History Date Type Detail Facility Start: 06-04-2021 End: 05-28-2023 Tobacco smoking status NHIS Unknown if ever smoked [facility] Start: 1940 Sex Assigned At Male [facility] Start: 05-28-2023 Tobacco smoking stat us NHIS Ex-smoker (finding) [facility] Evaluation note 06-18-2024 Note Date & Type Note Facility 06-18-2024 Evaluation note Diagnosis Onset Date Resolution Essential hypertension chronic Ap ril 5 11:26am Presence of stent in coronary artery April, chronic June 18, 2024 11:26am Pure hypercholesterolemia chronic June 18, 2024 11:26am [facility] Work Phone: Evaluation note 04-24-2009 Note Date & Type Note Facility 04-24-2009 Evaluation note Diagnosis Onset Date Dyspnea on exertion acute 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 Essential hypertension chron ic Presence of stent in coronar y artery April, chronic Pure hypercholesterolemia [facility] Influenza due to influenza v irus, type A, human acute Acute bronchitis, unspecified acute Dyspnea on exertion acute COPD (chronic obstructive pulmonary disease) [facility] Work Phone: Evaluation note 04-24-2009 Note Date & Type Note Facility 04-24-2009 Evaluation note Diagnosis Onset Date Umbilical hernia acute Urinary frequency acute COPD (chronic obstructive pulmonary disease) chronic Presence of stent in coronar y artery April, chronic Pure hypercholesterolemia [facility] Work Phone: Evaluation note Note Date & Type Note Facility Evaluation note Diagnosis Onset Date Acute bronchitis, unspecified acute [facility] Work Phone: Evaluation note Note Date & Type Note Facility Evaluation note Diagnosis Onset Date URI (upper respiratory infection) acute URI (upper respiratory infection) acute Cerumen impaction acute Dyspnea on exertion acute Shortness of breath acute COPD exacerbation chronic [facility] Work Phone: Evaluation note Note Date & Type Note Facility Evaluation note Diagnosis Onset Date URI (upper respiratory infection) acute Cerumen impaction acute Dyspnea on exertion acute Shortness of breath acute COPD exacerbation chronic COPD (chronic obstructive pulmonary disease) chronic Essential hypertension chron ic Presence of stent in coronar y artery April, chronic Pure hypercholesterolemia [facility] Work Phone: Reason for referral (narrative) Note Date & Type Note Facility Reason for referral (narrative) No reason for referral information available [facility] Work Phone: Chief Complaint and Reason for Visit Chief Complaint PHASE III MA INTENANCE SELF-PAY CONCERN FOR SINUS INFECTION Cough INTLABS Reason for Visit Acute bronchitis, un specified Chief Complaint FLU SHOT 1 Y FU COUGH,CHEST CONGESTED CHEST CONGESTION/SOB XRAY CAD/ASHD CAD/ASHD Reason for Visit Dyspnea on exertion Atherosclerotic heart disease of knik coronary artery without angina pectoris Essential hypertension Presence of stent in coronary artery Pure hypercholesterolemia Influenza due to influenza virus, type A, human Acute bronchitis, unspecified Dyspnea on exertion COPD (chronic obstructive pulmonary disease) Chief Complaint Annual Reason for Visit Umbilical hernia Urinary frequency COPD (chronic obstructive pulmonary disease) Presence of stent in coronary artery Pure hypercholesterolemia Chief Complaint COUGH/CHEST CONGESTI ON CONGESTION/COUGH CLOGGED EARS CHEST CONGESTION/SHORTNESS OF BREATH EORDER Reason for Visit URI (upper respirato ry infection) URI (upper respiratory infection) Cerumen impaction Dyspnea on exertion Shortness of breath COPD exacerbation Chief Complaint CONGESTION/COUGH CLOGGED EARS CHEST CONGESTION/SHORTNESS OF BREATH EORDER FOLLOW UP / HANDICAP PLACARD 1 Y FU/PREV PFM SOB Reason for Visit URI (upper respirato ry infection) Cerumen impaction Dyspnea on exertion Shortness of breath COPD exacerbation COPD (chronic obstructive pulmonary disease) Essential hypertension Presence of stent in coronary artery Pure hypercholesterolemia Chief Complaint Admit Date 1 Y FU June 18, 2024 11: 26am EORDERS June 19, 2024 9:4 7am PH III monthly maintenance self pay Apri l 2024 8:00am PH III monthly maintenance self pay July 22, 2024 8:00am Reason for Visit Admit Date Essential hypertension June 18, 2024 11:26am Presence of stent in coronary artery Apr 2024 11:26am Pure hypercholesterolemia June 18 11:26am Family History No Family History Records Found Relationship Condition Age at Onset Recorded Date/T marcelina father Coronary artery disease Unknown Hypertension Unknown Hyperlipidemia Unknown Myocardial infarction Unknown sister Hypertension Unknown brother Hyperlipidemia Unknown History of coronary artery bypass surgery Unknown Advance Directives No Advanced Directives Records Found Advance Directive Response Recorded Date/ Time Living Will No January 09 016 2:48pm Power of Sledger No January 10, 2016 2:48pm Advance Directive Response Recorded Date/ Time Living Will No January 09 016 1:48pm Power of Sledger No January 10, 2016 1:48pm Summary Purpose Additional Source Comments Goals (unrecognized section and content) Goals may be documented in a n alternate sectionGoals may be documented in an alternate sectionGoals may be documented in an alternate sectionGoals may be documented in an alternate sectionGoals may be documented in an alternate sectionGoals may be documented in an alternate section Care Teams (unrecognized sec tion and content) Team Status: Active Member Role Status Dates Dr. Freddy Carson , DO Family Provider Active Dr. Freddy Carson , DO Primary Care Provider Active Team Status: Inactive Member Role Status Dates Dr. Freddy Carson , DO Primary Care Provider, Referr ing Provider Active Dr. Dedrick Ureña MD Attending Provider Active Team Status: Inactive Member Role Status Dates Dr. Freddy Carson , DO Primary Care Provider, Referr ing Provider Active Steven Miguel PA, PA Attending Provider Active Team Status: Inactive Member Role Status Dates Dr. Freddy Carson , DO Primary Care Provider, Referr ing Provider Active Dav TORIBIO, PA Attending Provider Active Team Status: Inactive Member Role Status Dates Dr. Freddy Carson DO Primary Care Provider Active Dr. Parviz Hernandez MD Attending Provider Active Team Status: Active Member Role Status Dates Dr. Freddy Carson , DO Primary Care Provider Active Dr. Dedrick Ureña MD Attending Provider, Other Prov ider Active Team Status: Inactive Member Role Status Dates Dr. Freddy Carson DO Primary Care Provider Active Dr. Dedrick Ureña MD Attending Provider Active Team Status: Inactive Member Role Status Dates Dr. Freddy Carson , DO Primary Care Pr ovider, Attending Provider, Referring Provider Active Team Status: Inactive Member Role Status Dates Dr. Freddy Carson DO Primary Care Provider, Referr ing Provider Active Alfonso Mena CENTRAL STERILE TECHNICIAN, CENTRAL STERILE TECHNICIAN-C Attending Provider Active Team Status: Inactive Member Role Status Dates Dr. Freddy Carson , DO Primary Care Provider Active Steven Miguel PA, PA Attending Provider, Referring Pr ovider Active Team Status: Inactive Member Role Status Dates Dr. Freddy Carson , DO Primary Care Provider, Referr ing Provider Active Minerva TORIBIO, PA Attending Provider Active Team Status: Inactive Member Role Status Dates Dr. Freddy Carson , DO Primary Care Provider Active Dr. Remigio Fields MD Attending Provider, Referrin g Provider Active Team Status: Active Member Role Status Dates Dr. Freddy Carson , DO Primary Care Provider Active Team Status: Inactive Member Role Status Dates Dr. Freddy Carson , DO Primary Care Provider Active Start: June 18, 2024 End: June 18, 2024 Dr. Freddy Carson DO Referring Provider Active Start: June 18, 2024 End: June 18, 2024 Jennifer Byrnes CENTRAL STERILE TECHNICIAN, CENTRAL STERILE TECHNICIAN-C Attending Provider Active Start: June 18, 2024 End: June 18, 2024 Team Status: Inactive Member Role Status Dates Dr. Freddy Carson DO Primary Care Provider Active Start: June 19, 2024 End: June 19, 2024 Jennifer Byrnes NP, CENTRAL STERILE TECHNICIAN-C Attending Provider Active Start: June 19, 2024 End: June 19, 2024 Jennifer Byrnes NP, CENTRAL STERILE TECHNICIAN-C Referring Provider Active Start: June 19, 2024 End: June 19, 2024 Team Status: Inactive Member Role Status Dates Dr. Freddy Carson DO Primary Care Provider Active Start: June 22, 2024 End: June 23, 2024 Dr. Remigio Fields MD Attending Provider Active Start: June 22, 2024 End: June 23, 2024 Dr. Remigio Fields MD Referring Provider Active Start: June 22, 2024 End: June 23, 2024 Team Status: Inactive Member Role Status Dates Dr. Freddy Carson DO Primary Care Provider Active Start: July 22, 2024 End: July 24, 2024 Dr. Remigio Fields MD Attending Provider Active Start: July 22, 2024 End: July 24, 2024 Dr. Remigio Fields MD Referring Provider Active Start: July 22, 2024 End: July 24, 2024 (unrecognized sect ion and content) No Status Records Found INFORMATION SOURCE (unrecogn ized section and content) DATE CREATED AUTHOR 07/27/2024 [facility] FOR RECORDS PERTAINING TO PATIENTS WHO ARE [...] BE BASED ON THE PRIMARY CLINICAL RECORDS. [employer] provides no warranty or guarantee of the accuracy or completeness of information in this document.
== END | disposition home or self-care (01) ==
LOC: MTRAD 11:03
PROVIDERS: PCP Family Medicine; Referring Provider Physician Assistant; Visit Provider Physician Assistant
DX: J44.1 Chronic obstructive pulmonary disease with (acute) exacerbation (principal)
CPT/HCPCS: 71046

== ENCOUNTER 2024-09-23 08:00 | Outpatient (RCR) | payer SELFPAY | END 2024-09-23 23:59 | LOC: PR 08:00 | PROVIDERS: PCP Family Medicine; Referring Provider Internal Medicine Pulmonary Disease; Visit Provider Internal Medicine Pulmonary Disease | DX: Z00.00 Encounter for general adult medical examination without abnormal findings (principal) ==

== ENCOUNTER 2024-10-21 08:00 | Outpatient (RCR) | payer SELFPAY | END 2024-10-24 23:59 | LOC: PR 08:00 | PROVIDERS: PCP Family Medicine; Referring Provider Internal Medicine Pulmonary Disease; Visit Provider Internal Medicine Pulmonary Disease | DX: Z00.00 Encounter for general adult medical examination without abnormal findings (principal) ==

== ENCOUNTER 2024-10-26 09:47 | Outpatient (RCR) | payer SELFPAY | END 2024-11-23 23:59 | LOC: PR 09:47 | PROVIDERS: PCP Family Medicine; Referring Provider Internal Medicine Pulmonary Disease; Visit Provider Internal Medicine Pulmonary Disease | DX: Z00.00 Encounter for general adult medical examination without abnormal findings (principal) ==

== ENCOUNTER → 2024-11-01 | Outpatient (CLI) | payer MEDICARE, SELFPAY | END | disposition home or self-care (01) | LOC: PSN 10:27 | PROVIDERS: PCP Family Medicine; Referring Provider Nurse Practitioner Family; Visit Provider Nurse Practitioner Family | DX: R06.02 Shortness of breath (principal) | CPT/HCPCS: 94060; 94726; 94729 ==

== ENCOUNTER → 2024-11-09 | Outpatient (CLI) | payer MEDICARE, SELFPAY ==
[2024-11-09 11:52] VITALS: PULSE 69; PULSE 70; PULSE 72; PULSE 73; PULSE 74; PULSE 76; O2SAT 88; O2SAT 89; O2SAT 90; O2SAT 91; O2SAT 93; O2SAT 95
--- NOTE | 2024-11-09 11:58 | CPS ---
WALK TESTING COMPLETED WITH PATIENT ON ROOM AIR. 1 BRIEF REST BREAK TAKEN AT 2 MINUTES INTO TESTING FOR INCREASE WOB, OTHERWISE PATIENT WALKED CONTINUOUSLY FOR TESTING. SPO2 BOUNCED BETWEEN 88-89% AT THE VERY END OF TESTING. DISCUSSION HAD WITH PATIENT AND HIS ABOUT BENEFITS OF SUPPLEMENTAL OXYGEN WHEN NECESSARY. PATIENT IS HESITANT AT THIS TIME AND WISHES TO DISCUSS WITH NP. LOVELACE AT FOLLOWUP VISIT. NO OXYGEN APPLIED DURING WALK TESTING. PATIENT WALKED 767FT DURING TESTING. PT TOOK THIS MONTH OFF OF MO PHIII HOWEVER WILL BEGIN AGAIN IN NOVEMBER. DISCUSSION HAD ABOUT USING O2 DURING EXERCISE UPON HIS RETURN WHICH WE WILL DISCUSS AGAIN AT THAT TIME. PATIENT AND HIS ARE AGREEABLE AND ACKNOWLEDGE UNDERSTANDING.
--- NOTE | 2024-11-12 10:39 | WT_ITS ---
PSN 6 Minute Walk Test 6 Minute Walk Test 6 Minute Walk Test: 6 Minute Walk Test PSN:6-Minute Walk Test Start: 11/09/24 11:51 Freq: Status: Active Protocol: [id number] Document 11/09/24 11:52 [facility] (Rec: 11/09/24 12:06 [facility] [id number]) 6 Minute Walk Test Date Performed 11/09/24 Time Performed 11:15 Height 5 ft 6 in Weight: 160 lb Weight in Pounds 160.[address]: [employer][email or web address] Assistive device None used: Pre-test Oxygen Delivery Room Air Method Pulse Ox (%) 95 Pulse Rate (60-100 69 beats/min) Dyspnea Shahbaz Scale ( 0 0-10) 1st minute Oxygen Delivery Room Air Method Pulse Ox (%) 93 Pulse Rate (60-100 70 beats/min) Dyspnea Shahbaz Scale ( 2 0-10) Number of Rests 0 Taken Reported Symptoms Increased Work of Breathing 2nd minute Oxygen Delivery Room Air Method Pulse Ox (%) 90 Pulse Rate (60-100 76 beats/min) Dyspnea Shahbaz Scale ( 3 0-10) Number of Rests 1 Taken Reported Symptoms Increased Work of Breathing 3rd minute Oxygen Delivery Room Air Method Pulse Ox (%) 91 Pulse Rate (60-100 73 beats/min) Dyspnea Shahbaz Scale ( 3 0-10) Number of Rests 0 Taken Reported Symptoms Increased Work of Breathing 4th minute Oxygen Delivery Room Air Method Pulse Ox (%) 90 Pulse Rate (60-100 74 beats/min) Dyspnea Shahbaz Scale ( 3 0-10) Number of Rests 0 Taken Reported Symptoms Increased Work of Breathing 5th minute Oxygen Delivery Room Air Method Pulse Ox (%) 89 Pulse Rate (60-100 73 beats/min) Dyspnea Shahbaz Scale ( 3 0-10) Number of Rests 0 Taken Reported Symptoms Increased Work of Breathing 6th minute Oxygen Delivery Room Air Method Pulse Ox (%) 88 Pulse Rate (60-100 72 beats/min) Dyspnea Shahbaz Scale ( 3 0-10) Number of Rests 0 Taken Reported Symptoms Increased Work of Breathing Post-test Oxygen Delivery Room Air Method Pulse Ox (%) 93 Pulse Rate (60-100 70 beats/min) Dyspnea Shahbaz Scale ( 0 0-10) Full Laps Walked 13 Partial Lap, Number 0 of Tiles Walked Total Distance 767 Walked (ft) 11/09/24 11:58 [facility] by Jaclyn Navarrete WALK TESTING COMPLETED WITH PATIENT ON ROOM AIR. 1 BRIEF REST BREAK TAKEN AT 2 MINUTES INTO TESTING FOR INCREASE WOB, OTHERWISE PATIENT WALKED CONTINUOUSLY FOR TESTING. SPO2 BOUNCED BETWEEN 88-89% AT THE VERY END OF TESTING. DISCUSSION HAD WITH PATIENT AND HIS ABOUT BENEFITS OF SUPPLEMENTAL OXYGEN WHEN NECESSARY. PATIENT IS HESITANT AT THIS TIME AND WISHES TO DISCUSS WITH NP. LOVELACE AT FOLLOWUP VISIT. NO OXYGEN APPLIED DURING WALK TESTING. PATIENT WALKED 767FT DURING TESTING. PT TOOK THIS MONTH OFF OF [place] PHIII HOWEVER WILL BEGIN AGAIN IN NOVEMBER. DISCUSSION HAD ABOUT USING O2 DURING EXERCISE UPON HIS RETURN WHICH WE WILL DISCUSS AGAIN AT THAT TIME. PATIENT AND HIS ARE AGREEABLE AND ACKNOWLEDGE UNDERSTANDING. Initialized on 11/09/24 11:58 - END OF NOTE Interpretation Interpretation: The patient ambulated 767 feet over the course of 6 minutes beginning on room air without assistive vices. Pretesting oxygen saturation was noted to be 95% on room air. With ambulation, the shanti oxygen saturation was 88% at minute 6 of testing. This represents a significant exertional oxygen desaturation, consistent with a pulmonary limitation to exercise tolerance. The patient declined supplemental O2. Recommendations Recommendations: Repeat 6-minute walk test, as the patient did desaturate to 88% at minute 6 of testing.
== END | disposition home or self-care (01) ==
LOC: PSN 11:06
PROVIDERS: PCP Family Medicine; Referring Provider Nurse Practitioner Family; Visit Provider Nurse Practitioner Family
DX: R06.02 Shortness of breath (principal)
CPT/HCPCS: 94618

== ENCOUNTER 2024-11-25 08:35 | Outpatient (RCR) | payer SELFPAY | END 2024-12-24 23:59 | LOC: PR 08:35 | PROVIDERS: PCP Family Medicine; Referring Provider Internal Medicine Pulmonary Disease; Visit Provider Internal Medicine Pulmonary Disease | DX: Z00.00 Encounter for general adult medical examination without abnormal findings (principal) ==

== ENCOUNTER → 2024-12-07 | Outpatient (CLI) | payer MEDICARE, SELFPAY ==
[2024-12-07 10:32] LABS: Hematocrit 47.5 % (40-54); Hemoglobin 15.9 g/dL (13.0-16.5); Immature Granulocytes Count 0.040 X10^3/uL (0.0-0.0); Mean Corp Hgb Conc 33.5 g/dL (32-36); Mean Corpuscular Volume 93.1 fL (80-94); Mean Platelet Vol. 9.5 fl (6.2-12.0); NRBC Flagged by Analyzer 0 % (0-5); Platelet Count 233 K/mm3 (150-450); RBC Distribution Width CV 13.2 % (11.6-14.6); RBC Distribution Width SD 44.9 fl (35.1-43.9); Red Blood Count 5.10 M/mm3 (4.6-6.2); White Blood Count 8.2 K/mm3 (4.4-11.0)
[2024-12-07 11:02] LABS: AST(SGOT) 29 U/L (<=37); Alanine Aminotransfer ALT/SGPT 27 U/L (<=46); Albumin, Serum 4.3 g/dL (3.4-4.8); Alkaline Phosphatase 152 U/L (40-129); Bilirubin, Direct 0.35 mg/dL (0.00-0.30); Cholesterol 138 mg/dL (<=200); Globulin 2.9 g/dL (2.2-4.2); Low Density Lipoprotein Calc. 70 mg/dL; Triglycerides 82 mg/dL; Very Low Density Lipoprotein 16 mg/dL (5-40); cholesterol:hdl ratio screen 2.66
== END | disposition home or self-care (01) ==
LOC: LAB 09:41
PROVIDERS: PCP Family Medicine; Referring Provider Nurse Practitioner Gerontology; Visit Provider Nurse Practitioner Family
DX: E78.00 Pure hypercholesterolemia, unspecified (principal); R06.02 Shortness of breath
CPT/HCPCS: 36415; 80061; 80076; 85025

== ENCOUNTER → 2024-12-15 | Outpatient (CLI) | payer MEDICARE, SELFPAY ==
--- NOTE | 2024-12-15 14:33 | CT_ITS ---
PROCEDURE: CHEST WITHOUT CONTRAST 12/15/2024 REASON FOR EXAM: SHORTNESS OF BREATH, PREVIOUS SMOKER TECHNIQUE: Chest CT without contrast. Coronal and Sagittal reconstruction series were provided. One or more dose reduction techniques were used (e.g., Automated exposure control, adjustment of the mA and/or kV according to patient size, use of iterative reconstruction technique RADIATION DOSE SUMMARY: CTDlvol: 9.13 mGy DLP: 345.01 mGycm COMPARISON: None FINDINGS: Lower neck:The thyroid gland is normal. There is no supraclavicular lymphadenopathy. Mediastinum:There are few non pathologically enlarged mediastinal lymph nodes. There are benign calcified subcarinal and left hilar lymph nodes. Heart and Vasculature:The heart size is normal. There is no pericardial effusion. There is significant calcific vascular disease of the coronary arteries and thoracic aorta. There is a least 1 cardiac stent present. Esophagus:Normal. Upper Abdomen:There are multiple small low-density nodules in the liver. 1 of the nodules, in the posterior segment of the right hepatic lobe, measures 10 mm in diameter and demonstrates a central density, possibly focal nodular hyperplasia. Chest wall:The soft tissues of the chest wall appear unremarkable. There is no axillary lymphadenopathy. There is moderate to severe multilevel degenerative disc disease of the thoracic and upper lumbar spine, most severe at the L2-3 level. Lungs, airways and pleura: There is moderate upper lobe predominant emphysema with both centrilobular and paraseptal components. There is a pleural-based scar in the inferior segment of the lingula. There is a benign calcified granuloma in the lower lobe of the left lung. There are no noncalcified pulmonary nodules. There are no pleural effusions. CT/Chest without Contrast IMPRESSION: 1. Emphysema. 2. There are no noncalcified pulmonary nodules. 3. Calcific vascular disease. 4. Multiple low-density liver nodules. 5. Thoracolumbar degenerative disc disease. Reading Location: [place] [id number]
== END | disposition home or self-care (01) ==
LOC: CT 14:32
PROVIDERS: PCP Family Medicine; Referring Provider Nurse Practitioner Family; Visit Provider Nurse Practitioner Family
DX: R06.02 Shortness of breath (principal)
CPT/HCPCS: 71250

== ENCOUNTER → 2024-12-24 | Outpatient (CLI) | payer MEDICARE, SELFPAY ==
--- NOTE | 2024-12-24 13:34 | ECHOD_ITS ---
Reason For Study ECHO/Echo Complete
== END | disposition home or self-care (01) ==
PROVIDERS: PCP Family Medicine; Referring Provider Nurse Practitioner Family; Visit Provider Nurse Practitioner Family
DX: R06.02 Shortness of breath (principal)
CPT/HCPCS: 93306

== ENCOUNTER 2025-01-06 08:00 | Outpatient (RCR) | payer SELFPAY | END 2025-01-23 23:59 | LOC: PR 08:00 | PROVIDERS: PCP Family Medicine; Referring Provider Internal Medicine Pulmonary Disease; Visit Provider Internal Medicine Pulmonary Disease | DX: Z00.00 Encounter for general adult medical examination without abnormal findings (principal) ==

== ENCOUNTER 2025-01-25 08:43 | Outpatient (RCR) | payer SELFPAY | END 2025-02-23 23:59 | LOC: PR 08:43 | PROVIDERS: PCP Family Medicine; Referring Provider Internal Medicine Pulmonary Disease; Visit Provider Internal Medicine Pulmonary Disease | DX: Z00.00 Encounter for general adult medical examination without abnormal findings (principal) ==